=== PATIENT | male | born 1980 | race Caucasian/White ===

== ENCOUNTER 2020-07-24 03:38 | Emergency (ER) | payer OTHER ==
[2020-07-24] MEDS ORDERED: ALBUTEROL INHALER 60 PUFF/8 GM IH ONE (04:18)
[2020-07-24 04:45] LABS: Absolute Lymphocytes (CBC) 1.4 K/uL (0.7-4.9); Basophils % 0.8 % (0-1.3); Hematocrit 57.4 % (39.6-49.0); Lymphocytes % 7.9 % (15.3-44.8); MPV 6.6 fL (7.6-11.3); RBC Red Blood Cell Count 6.39 M/uL (4.33-5.43)
[2020-07-24 05:10] LABS: ALT/SGPT 17 U/L (12-78); AST/SGOT 15 U/L (15-37); Albumin 4.4 g/dL (3.4-5.0); Alkaline Phosphatase 86 U/L (45-117); BUN Blood Urea Nitrogen 4 mg/dL (7-18); Bicarbonate 30 mmol/L (21-32); Bilirubin Direct 0.2 mg/dL (0-0.2); Bilirubin Total 0.8 mg/dL (0.2-1.0); Glucose Level 113 mg/dL (74-106); Protein, Total 8.6 g/dL (6.4-8.2); Sodium Level 141 mmol/L (136-145)
[2020-07-24 05:11] LABS: NT PRO-BNP 480 pg/mL (<125); Troponin (Emerg Dept Use Only) < 0.02 ng/mL (0.0-0.045)
[2020-07-24] MEDS ORDERED: ACETAMINOPHEN 500 MG TAB ONE (05:30)
[2020-07-24] MEDS ORDERED: LORazepam 2 MG/ML VIAL ONE (05:30)
[2020-07-24] MEDS ORDERED: POTASSIUM 25 MEQ EFFERV TAB ONE (06:14)
--- NOTE | 2020-07-24 07:28 | RAD REPORT ---
EXAM DESCRIPTION: CT - Chest For Pe Angio - 07/24/2020 6:41 am CLINICAL HISTORY: SOB COMPARISON: CTANGIO CHEST FOR PE dated 02/07/2011; Chest Single View dated 07/24/2020 TECHNIQUE: Dynamically enhanced 3 mm thick images of the chest were obtained during administration o f approximately 150mL Isovue 370 IV contrast. Coronal and oblique MIP reconstruction images were gene rated and reviewed. Exam utilizes a protocol to evaluate the pulmonary arterial tree. All CT scans are performed using dose optimization technique as appropriate and may include automated exposure control or mA/KV adjustment according to patient size. FINDINGS: Exam has respiratory motion degradation that detail. No large central pulmonary emboli are present. Suspicion for peripheral pulmonary emboli is very low. The aorta as imaged shows no acute or suspicious finding. No pericardial thickening or effusion. No large mass or consolidation. The respiratory motion accentuates interstitial markings which could mask a mild edema or interstitial infiltrate. There is an 8 x 4 mm nodule in the superior segment lef t lower lobe abutting the fissure (image 61/132). No other nodules or mass. No pleural effusion or pl eural thickening. No mediastinal or hilar suspicious masses. No chest wall masses or abnormal axillary lymphadenopathy. IMPRESSION: No pulmonary emboli identified. The amount of respiratory motion does limit the examinat ion the pulmonary emboli are not suspected. No large mass or consolidation the motion limitations of the examination could also mask a mild inter stitial edema or infiltrate. An 8 x 4 mm pulmonary nodule in the superior segment left lower lobe is noted. Fleischner Society 201 7 follow-up recommendations for pulmonary nodule of this size would be repeat CT imaging in 6-12 wilda hs.
[2020-07-24 07:46] LABS: Barbiturates NEGATIVE (NEGATIVE); Benzodiazepines POSITIVE (NEGATIVE); Cocaine NEGATIVE (NEGATIVE); METHAMPHETAM NEGATIVE (NEGATIVE); Methadone NEGATIVE (NEGATIVE); Opiates NEGATIVE (NEGATIVE); Phencyclidine NEGATIVE (NEGATIVE); THC Cannibis NEGATIVE (NEGATIVE)
[2020-07-24 08:00] LABS: Urine Blood NEGATIVE (NEG); Urine Glucose NEGATIVE (NEG); Urine Protein NEGATIVE (NEG); Urine Specific Gravity 1.015 (1.005-1.030)
--- NOTE | 2020-07-24 08:05 | ER ---
Nurse's Notes [facility] Name: Saleem Erickson Age: 40 yrs Sex: Male : 1980 Arrival Date: 07/24/2020 Time: 03:39 Bed 8 Private MD: Diagnosis: Chest pain, unspecified;Cough;Pneumonia, unspecified organism Presentation: 07/24 03:49 Chief complaint: EMS states: toned out for left leg pain and chest pain with shortness ll2 of breath, hiv positive patient and requested to be brought in to er. Coronavirus screen: Client denies travel out of the [place] in the last 14 days. Client presents with at least one sign or symptom that may indicate coronavirus-19. Standard/surgical mask placed on the client. Provider contacted for isolation considerations. Ebola Screen: Patient negative for fever greater than or equal to 101.5 degrees Fahrenheit, and additional compatible Ebola Virus Disease symptoms. Initial Sepsis Screen: Does the patient meet any 2 criteria? No. Patient's initial sepsis screen is negative. Does the patient have a suspected source of infection? No. Patient's initial sepsis screen is negative. Risk Assessment: Do you want to hurt yourself or someone else? Patient reports no desire to harm self or others. Onset of symptoms was July 23, 2020. 03:49 Method Of Arrival: EMS: [facility] 03:49 Acuity: MARTA 3 ll2 Triage Assessment: 03:54 General: Appears in no apparent distress. Behavior is calm, cooperative, appropriate ll2 for age. General:. Pain: Complains of pain in left leg. EENT: No signs and/or symptoms were reported regarding the EENT system. Neuro: Level of Consciousness is awake, alert, obeys commands, Oriented to person, place, time, situation. Cardiovascular: Patient's skin is warm and dry. Respiratory: Airway is patent Respiratory effort is even, unlabored, Respiratory pattern is regular, symmetrical. GI: No signs and/or symptoms were reported involving the gastrointestinal system. : No signs and/or symptoms were reported regarding the genitourinary system. Derm: Skin is intact, is healthy with good turgor, Skin is dry, Skin is pink, warm \\T\\ dry. Musculoskeletal: Circulation, motion, and sensation intact. Range of motion: intact in all extremities. Historical: - Allergies: 04:03 VENLAFAXINE; ll2 04:03 Amoxicillin; ll2 04:03 Tizanidine; ll2 04:03 FLUCONAZOLE; ll2 - Home Meds: 03:57 hydrocodone-acetaminophen 7.5-325 mg Oral tab 1 tab every 4-6 hours [Active]; ll2 - PMHx: 04:05 HIV; Anxiety; ll2 - Immunization history:: Adult Immunizations. - Social history:: Smoking status: Patient reports the use of cigarette tobacco products, smokes one-half pack cigarettes per day. Screenin:40 Abuse screen: Denies threats or abuse. Nutritional screening: No deficits noted. ea Tuberculosis screening: No symptoms or risk factors identified. Fall Risk No IV (0 pts). Assessment: 03:55 Reassessment: SEE TRIAGE ASSESSMENT. ll2 04:41 Reassessment: Patient and/or family updated on plan of care and expected duration. Pain ll2 level reassessed. Patient is alert, oriented x 3, equal unlabored respirations, skin warm/dry/pink. Pain: Pain does not radiate. Pain began gradually. 05:06 Reassessment: PT REQUESTING SOMETHING FOR PANIC ERD NOTIFIED, VERBAL ORDER OBTAINED. ll2 05:14 Reassessment: platelet of 921 ED provider informed. rr5 06:14 Reassessment: No changes from previously documented assessment. Patient and/or family ll2 updated on plan of care and expected duration. Pain level reassessed. Patient is alert, oriented x 3, equal unlabored respirations, skin warm/dry/pink. 07:46 Reassessment: pt call light answered, pt states "i am having anxiety and my leg hurts", tw2 provider notified. pt NAD upon entry into exam room. 08:07 Reassessment: provider at bedside at this time. tw2 08:08 Reassessment: Patient appears in no apparent distress at this time. Patient and/or tw2 family updated on plan of care and expected duration. Pain level reassessed. Patient is alert, oriented x 3, equal unlabored respirations, skin warm/dry/pink. 08:17 Reassessment: Patient appears in no apparent distress at this time. No changes from tw2 previously documented assessment. Patient and/or family updated on plan of care and expected duration. Pain level reassessed. Patient is alert, oriented x 3, equal unlabored respirations, skin warm/dry/pink. Vital Signs: 03:49 BP 143 / 98; Pulse 87; Resp 18; Temp 97.6; Pulse Ox 93% on R/A; ll2 04:00 BP 110 / 77; Pulse 95; Resp 18; Temp 97.6; Pulse Ox 93% ; ll2 05:00 BP 110 / 77; Pulse 96; Resp 18; Pulse Ox 94% on R/A; ll2 07:00 BP 122 / 76; Pulse 82; Resp 17; Pulse Ox 95% on R/A; tw2 08:08 BP 130 / 76; Pulse 96; Resp 17; Pulse Ox 95% on R/A; tw2 ED Course: 03:39 Patient arrived in ED. ea 03:40 Patient has correct armband on for positive identification. Placed in gown. Bed in low ea position. Call light in reach. satellite project site monitor on. Pulse ox on. NIBP on. 03:41 Patient placed in an exam room, on a stretcher, on hall monitor, on pulse oximetry. ea 03:43 Dong Montanez MD is Attending Physician. mh7 03:45 Jyoti Oden RN is Primary Nurse. ea 03:49 Joanna Hoang RN is Primary Nurse. ll2 03:54 Triage completed. ll2 04:20 Initial lab(s) drawn, by ia, sent to lab. Inserted saline lock: 20 gauge in right ll2 antecubital area, using aseptic technique. Blood collected. 05:11 X-ray completed. Portable x-ray completed in exam room. Patient tolerated procedure mh1 well. 05:11 Chest Single View XRAY In Process Unspecified. EDMS 05:46 No provider procedures requiring assistance completed. Patient maintains SpO2 ll2 saturation greater than 95% on room air. 06:41 CT Chest For PE Angio In Process Unspecified. EDMS 07:08 Report given to ADELA Ritchie. ll2 07:18 Primary Nurse role handed off by Joanna Hoang, ADELA tw2 07:18 Christin Wright RN is Primary Nurse. tw2 07:59 Attending Physician role handed off by Dong Montanez MD rn 07:59 Man Alvarez MD is Attending Physician. rn 08:22 IV discontinued, intact, bleeding controlled, No redness/swelling at site. Pressure tw2 dressing applied. Administered Medications: 04:17 Drug: Albuterol HFA Inhaler 2 puffs Route: Inhalation; rr5 05:20 Follow up: Response: No adverse reaction ll2 05:26 Drug: Ativan 1 mg Route: IVP; Site: right antecubital; ll2 06:14 Follow up: Response: No adverse reaction; Anxiety decreased ll2 05:28 Drug: Tylenol 500 mg Route: PO; ll2 06:13 Follow up: Response: No adverse reaction ll2 06:00 Drug: Potassium Effervescent Tablet 50 mEq Route: PO; ll2 06:14 Follow up: Response: No adverse reaction ll2 08:09 Drug: LevaQUIN 750 mg Route: PO; tw2 08:21 Follow up: Response: No adverse reaction tw2 Outcome: 08:04 Discharge ordered by . rn 08:21 Discharged to home via wheelchair, with significant other. tw2 08:21 Condition: stable 08:21 Discharge instructions given to patient, significant other, Instructed on discharge instructions, follow up and referral plans. medication usage, Demonstrated understanding of instructions, follow-up care, medications, Prescriptions given X 1. 08:22 Patient left the ED. tw2 Signatures: Dispatcher [employer] EDMS Fatoumata Tavera mh1 Man Alvarez MD MD rn Wise, Tara, RN RN tw2 Jyoti Oden RN RN ea Roque, Raymond, RN RN rr5 Joanna Hoang RN RN 2 Dong Montanez MD MD 7 Corrections: (The following items were deleted from the chart) 03:40 03:40 Social history: Smoking status: xiomara solano
--- NOTE | 2020-07-24 08:05 | EDPHYS ---
Physician Documentation [facility] Name: Saleem Erickson Age: 40 yrs Sex: Male : 1980 Arrival Date: 07/24/2020 Time: 03:39 Bed 8 Private MD: ED Physician Man Alvarez HPI: 07/24 04:32 This 40 yrs old Male presents to ER via EMS with complaints of Chest Pain > mh7 29 y/o, Leg Pain. 05:13 The patient presents to the emergency department with anxiety, over unknown mh7 circumstances. Onset: The symptoms/episode began/occurred 1 week(s) ago. Past psychiatric history: Prior diagnosis: no previous psychiatric diagnosis known, Psychiatric medications include: none, Primary psychiatric physician: the patient does not have a primary psychiatric physician, the patient has not had a prior suicide gesture, the patient does not have a previous inpatient psychiatric history, the patient's last psychiatric treatment was none. Associated signs and symptoms: Pertinent positives; anxiety, chest pain, shortness of breath, cough, Pertinent negatives: abdominal pain, chills, delusions, depression, fever, hallucinations, headache, homicidal ideation, nausea, night sweats, palpitations, paranoia, substance abuse, suicide ideation, tremor, vomiting. Severity of symptoms: At their worst the symptoms were moderate 2 day(s) ago, in the emergency department the symptoms are unchanged. Patient reports feeling anxious and having panic attack. He has associated chest pain and SOB. He has had a productive cough with green sputum.. Historical: - Allergies: 04:03 VENLAFAXINE; ll2 04:03 Amoxicillin; ll2 04:03 Tizanidine; ll2 04:03 FLUCONAZOLE; ll2 - Home Meds: 03:57 hydrocodone-acetaminophen 7.5-325 mg Oral tab 1 tab every 4-6 hours [Active]; ll2 - PMHx: 04:05 HIV; Anxiety; ll2 - Immunization history:: Adult Immunizations. - Social history:: Smoking status: Patient reports the use of cigarette tobacco products, smokes one-half pack cigarettes per day. ROS: 05:13 Constitutional: Negative for fever, chills, and weight loss, Eyes: Negative for injury, mh7 pain, redness, and discharge, ENT: Negative for injury, pain, and discharge, Neck: Negative for injury, pain, and swelling, Abdomen/GI: Negative for abdominal pain, nausea, vomiting, diarrhea, and constipation, Back: Negative for injury and pain, : Negative for injury, bleeding, discharge, and swelling, Skin: Negative for injury, rash, and discoloration, Neuro: Negative for headache, weakness, numbness, tingling, and seizure, Allergy/Immunology: Negative for hives, rash, and allergies, Endocrine: Negative for neck swelling, polydipsia, polyuria, polyphagia, and marked weight changes, Hematologic/Lymphatic: Negative for swollen nodes, abnormal bleeding, and unusual bruising. Exam: 05:13 Head/Face: Normocephalic, atraumatic. Eyes: Pupils equal round and reactive to light, mh7 extra-ocular motions intact. Lids and lashes normal. Conjunctiva and sclera are non-icteric and not injected. Cornea within normal limits. Periorbital areas with no swelling, redness, or edema. Neck: Trachea midline, no thyromegaly or masses palpated, and no cervical lymphadenopathy. Supple, full range of motion without nuchal rigidity, or vertebral point tenderness. No Meningismus. Chest/axilla: Normal chest wall appearance and motion. Nontender with no deformity. No lesions are appreciated. Cardiovascular: Regular rate and rhythm with a normal S1 and S2. No gallops, murmurs, or rubs. Normal PMI, no JVD. No pulse deficits. Respiratory: Lungs have equal breath sounds bilaterally, clear to auscultation and percussion. No rales, rhonchi or wheezes noted. No increased work of breathing, no retractions or nasal flaring. Abdomen/GI: Soft, non-tender, with normal bowel sounds. No distension or tympany. No guarding or rebound. No evidence of tenderness throughout. Back: No spinal tenderness. No costovertebral tenderness. Full range of motion. Skin: Warm, dry with normal turgor. Normal color with no rashes, no lesions, and no evidence of cellulitis. MS/ Extremity: Pulses equal, no cyanosis. Neurovascular intact. Full, normal range of motion. 05:13 Neuro: Awake and alert, GCS 15, oriented to person, place, time, and situation. Cranial nerves II-XII grossly intact. Motor strength 5/5 in all extremities. Sensory grossly intact. Cerebellar exam normal. Normal gait. 05:13 Constitutional: The patient appears in no acute distress, alert, awake, comfortable, anxious. 05:13 Psych: Behavior/mood is cooperative, anxious, Affect is animated, Oriented to person, place, time, Patient has no thoughts/intents to harm self or others. Judgement / Insight is normal. Memory is normal. Delusions/hallucinations are not present. Vital Signs: 03:49 BP 143 / 98; Pulse 87; Resp 18; Temp 97.6; Pulse Ox 93% on R/A; ll2 04:00 BP 110 / 77; Pulse 95; Resp 18; Temp 97.6; Pulse Ox 93% ; ll2 05:00 BP 110 / 77; Pulse 96; Resp 18; Pulse Ox 94% on R/A; ll2 07:00 BP 122 / 76; Pulse 82; Resp 17; Pulse Ox 95% on R/A; tw2 08:08 BP 130 / 76; Pulse 96; Resp 17; Pulse Ox 95% on R/A; tw2 MDM: 07:23 Transition of care: After a detail discussion of the patient's case, care is 7 transferred to Man Alvarez MD. 07:59 Patient medically screened. rn 08:01 Differential diagnosis: PE, bronchitis, pneumonia, pneumothorax. Data reviewed: vital rn signs, nurses notes, lab test result(s), radiologic studies, CT scan, and as a result, I will discharge patient. Counseling: I had a detailed discussion with the patient and/or guardian regarding: the historical points, exam findings, and any diagnostic results supporting the discharge/admit diagnosis, lab results, radiology results, the need for outpatient follow up, to return to the emergency department if symptoms worsen or persist or if there are any questions or concerns that arise at home. Special discussion: I discussed with the patient/guardian in detail that at this point there is no indication for admission to the hospital. It is understood, however, that if the symptoms persist or worsen the patient needs to return immediately for re-evaluation. ED course: Signed out to me by Dr. Montanez, plan was to get CT PE protocol and dc if normal. . 07/24 04:00 Order name: CBC with Diff; Complete Time: 05:44 [facility] 07/24 04:00 Order name: Basic Metabolic Panel; Complete Time: 05:44 [facility] 07/24 04:00 Order name: LFT's; Complete Time: 05:44 [facility] 07/24 04:00 Order name: UDS; Complete Time: 08:00 [facility] 07/24 04:01 Order name: Troponin (emerg Dept Use Only); Complete Time: 05:44 [facility] 07/24 04:01 Order name: PROBNP; Complete Time: 05:44 [facility] 07/24 04:00 Order name: Chest Single View XRAY [facility] 07/24 04:02 Order name: COVID-19 [facility] 07/24 05:48 Order name: CT Chest For PE Angio; Complete Time: 08:00 [facility] 07/24 07:16 Order name: Urine Dipstick--Ancillary (enter results) 07/24 04:01 Order name: EKG - Nurse/Tech; Complete Time: 05:29 [facility] Administered Medications: 04:17 Drug: Albuterol HFA Inhaler 2 puffs Route: Inhalation; rr5 05:20 Follow up: Response: No adverse reaction ll2 05:26 Drug: Ativan 1 mg Route: IVP; Site: right antecubital; ll2 06:14 Follow up: Response: No adverse reaction; Anxiety decreased ll2 05:28 Drug: Tylenol 500 mg Route: PO; ll2 06:13 Follow up: Response: No adverse reaction ll2 06:00 Drug: Potassium Effervescent Tablet 50 mEq Route: PO; ll2 06:14 Follow up: Response: No adverse reaction ll2 08:09 Drug: LevaQUIN 750 mg Route: PO; tw2 08:21 Follow up: Response: No adverse reaction tw2 Disposition: 07/24/20 08:04 Discharged to Home. Impression: Chest pain, unspecified, Cough, Pneumonia, unspecified organism. - Condition is Stable. - Discharge Instructions: Acute Bronchitis, Adult, Nonspecific Chest Pain. - Prescriptions for Levaquin 750 mg Oral Tablet - take 1 tablet by ORAL route once daily for 10 days; 10 tablet. - Medication Reconciliation Form, Thank You Letter, Antibiotic Education, Prescription Opioid Use form. - Follow up: Private Physician; When: As needed; Reason: Recheck today's complaints, Re-evaluation by your physician. - Problem is new. - Symptoms have improved. Signatures: Dispatcher [employer] EDMS Man Alvarez MD MD rn Wise, Tara RN RN tw2 Jyoti Oden, RN RN Trey Rivera, RN RN rr5 Joanna Hoang, RN RN ll2 Dong Montanez MD MD mh7 Corrections: (The following items were deleted from the chart) 03:40 03:40 Social history: Smoking status: xiomara solano 08:05 08:04 07/24/2020 08:04 Discharged to Home. Impression: Chest pain, unspecified; Cough. rn Condition is Stable. Forms are Medication Reconciliation Form, Thank You Letter, Antibiotic Education, Prescription Opioid Use. Follow up: Private Physician; When: As needed; Reason: Recheck today's complaints, Re-evaluation by your physician. Problem is new. Symptoms have improved. rn 08:22 08:05 07/24/2020 08:04 Discharged to Home. Impression: Chest pain, unspecified; Cough; tw2 Pneumonia, unspecified organism. Condition is Stable. Discharge Instructions: Acute Bronchitis, Adult, Nonspecific Chest Pain. Prescriptions for Zithromax Z-Robin 250 mg Oral Tablet - take 1 tablet by ORAL route as directed for 5 days Day 1 - take two (2) tablets one time. Day 2, 3, 4 , 5 take one (1) tablet once daily.; 6 tablet. and Forms are Medication Reconciliation Form, Thank You Letter, Antibiotic Education, Prescription Opioid Use. Follow up: Private Physician; When: As needed; Reason: Recheck today's complaints, Re-evaluation by your physician. Problem is new. Symptoms have improved. rn
[2020-07-24] MEDS ORDERED: levoFLOXacin 750 MG TAB ONE (08:25)
[2020-07-24 11:17] VITALS: TEMP 97.6
[2020-07-24 11:22] VITALS: O2SAT 95
[2020-07-24 11:23] VITALS: BP 130/76
--- NOTE | 2020-07-25 10:27 | RAD REPORT ---
EXAM DESCRIPTION: RAD - Chest Single View - 07/24/2020 5:10 am CLINICAL HISTORY: COUGH COMPARISON: None. FINDINGS: Single frontal radiograph view of the chest. Cardiomediastinal silhouette: Normal size and contour. Lungs: Mild patchy bibasilar opacities. No pneumothorax or large effusion. Bones: No acute osseous abnormality. Leads overlie the chest. Upper abdomen: No abnormality identified. IMPRESSION: 1. Mild patchy bibasilar opacities. These findings could be seen with developing pneumon ic process. Electronically signed by: Enzo Chairez 07/24/2020 6:44 AM TELLER SUPERVISOR Due to temporary technical issues with the PACS/Fluency reporting system, reports are being signed by the in house radiologist without review as a courtesy to ensure prompt reporting. The interpreting r adiologist is fully responsible for the content of the report.
== END 2020-07-24 08:22 | disposition home or self-care (01) ==
LOC: ER 03:38
DX: J18.9 Pneumonia, unspecified organism (principal); F17.210 Nicotine dependence, cigarettes, uncomplicated; F41.9 Anxiety disorder, unspecified
CPT/HCPCS: 36415; 71045; 71275; 80048; 80076; 80307; 81003; 83880; 84484; 85025; 93005; 96374; 99285; Q9967; U0003

== ENCOUNTER 2020-07-25 06:58 | Inpatient (IN) | payer OTHER ==
--- OUTSIDE RECORDS SUMMARY | 2020-07-25 07:00 | XMS REPORT | Summary of Care ---
:1980 Author Organization [facility] Address [address] [place] [address] Care Team Providers Name Role Phone Manuel Izquierdo MD Primary Care Provider Reason for Visit Reason Comments Referral/consult Encounter Details Date Type Department Care Team Description 04/22/2020 Telephone [facility] Infectious Iker Izquierdo MD Referral/consult Diseases- [address] [place], [place] [id number] [place] [address] Allergies Active Allergy Reactions Severity Noted Date Comments Aspirin 10/20/2005 Mupirocin Rash 06/09/2014 Propoxyphene N-Acetaminophen 10/20/2005 Gabapentin Hives 05/02/2019 Sulfa (Sulfonamide Antibiotics) Rash 4 Reaction to Bactrim DS Tramadol Hives 06/09/2014 documented as of this encounter (statuses as of 05/05/2020) Medications Medication Sig Dispensed Refills Start Date End Date Status HYDROcodone-acetamin Take 1 tablet by 90 tablet 0 09/02/2019 Active ophen (NORCO) 10-325 mouth every 6 (six) mg hours as needed for tabletIndications: Pain (scale 4-6). Bronchitis NARCAN 4 ADMINISTER A SINGLE 0 11/04/2019 Active mg/actuation [place] SPRAY INTRANASALLY INTO ONE NOSTRIL. CALL 911. MAY REPEAT X 1. tiZANidine 2 mg TAKE 1 CAPSULE BY 0 10/08/2019 Active capsule MOUTH EVERY 6 HOURS DIRECTED FOR 30 DAYS tiZANidine 2 mg TAKE 1 TABLET BY 0 12/02/2019 Active tablet MOUTH EVERY 6 HOURS DIRECTED FOR 30 DAYS fluconazole 100 mg TAKE 1 TABLET BY 7 tablet 3 12/18/2019 Active tabletIndications: MOUTH ONCE DAILY FOR Oral candidiasis 7 DAYS uuqdnjqel-fxaffwua-u Take 1 tablet by 30 tablet 6 04/22/2020 Active enofov ala 50-200-25 mouth daily. mg tabletIndications: Need for vaccination documented as of this encounter (statuses as of 05/05/2020) Active Problems Problem Noted Date S/P IVC filter 03/27/2017 Hip pain, chronic, left 06/12/2014 Human immunodeficiency virus (HIV) disease 08/04/2012 Hepatitis B virus infection 08/04/2012 documented as of this encounter (statuses as of 05/05/2020) Resolved Problems Problem Noted Date Resolved Date Rash 11/25/2013 03/05/2016 Oral candidiasis 08/11/2012 03/05/2016 MRSA infection 08/04/2012 03/05/2016 Hepatitis B, chronic 08/04/2012 08/04/2012 documented as of this encounter (statuses as of 05/05/2020) Immunizations Name Administration Dates Next Due Influenza Virus Vaccine 09/08/2012 Influenza Virus Vaccine (3+ yrs) 07/22/2013 Influenza Virus Vaccine Quad .5 mL IM 6+ MO 09/02/2019 Influenza Virus Vaccine Quad ID 18-64 YRS 08/03/2015 Influenza Virus Vaccine Quad IM Multi-dose 6+ MO 09/15/2014 Pneumococcal 13 Conjugate, PCV13 (Prevnar 13) 09/15/2014 Pneumococcal Polysaccharide, PPSV23 (PNEUMOVAX) 11/24/2012 TDAP (ADACEL) VACCINE 09/08/2012 documented as of this encounter Social History Tobacco Use Types Packs/Day Years Used Date Current Every Day Smoker Cigarettes 0.25 1 Smokeless Tobacco: Never Used Comments: 1 ppd x 15 years Alcohol Use Drinks/Week oz/Week Comments No sober since age 18 Sex Assigned at Date Recorded Not on file COVID-19 Exposure Response Date Recorded In the last month, have you been in contact with No / Unsure 04/05/2020 4:15 PM CDT someone who was confirmed or suspected to have Coronavirus / COVID-19? documented as of this encounter Last Filed Vital Signs Not on filedocumented in this encounter Miscellaneous Notes Telephone Encounter - Ivette Lane - 05/04/2020 8:18 AM CDTPlease review and close encounter. Thank you. elephone Encounter - Lesli Peterson RN - 04/28/2020 1:12 PM CDTCalled and spoke with patient. Advised him that we would need his most recent medical records from his Pain doctor faxed to us. Patient asked me to send the fax number to his email (he is driving right now). Emailed patient our fax number. Awaiting medical records... elephone Encounter - Rex Escamilla PA - 04/26/2020 1:37 PM CDTHe is seeing a pain doctor locally and would need to have those records faxed to us and scanned in before placing a referral elephone Encounter - Lesli Peterson RN - 04/26/2020 8:19 AM CDTJeff, Is it okay to place an updated referral to Pain Management? Last time one was done back in 12/2017, it was for: HIV postive, s/p hip replacement with chronic pain Thank you elephone Encounter - Ivette Lane - 04/22/2020 2:37 PM CDTavonus Vincent Erickson is a 40 year old male is requesting an updated external pain mgmt referral sent to [facility] Please fax to [phone] # [phone] Thank you documented in this encounter Plan of Treatment Date Type Specialty Care Team Description 07/06/2020 Office Visit Infectious Disease Anu Izquierdo MD [address] [place] [address] 555 [phone] Health Maintenance Due Date Last Done Comments PNEUMOCOCCAL 0-64 YEARS COMBINED 11/24/2017 09/15/2014, 08/2012 SERIES (3 of 3 - PPSV23) INFLUENZA VACCINE (#1) 2020 09/02/2019, 09/15/2014, 07/22/2013, Additional history exists Depression Screening 09/02/2020 09/02/2019 DTaP,Tdap,and Td Vaccines (2 - Td) 09/08/2022 09/08/2012 documented as of this encounter Results Not on filedocumented in this encounter Additional Health Concerns Infection Onset Date Last Indicated Resolved Time Contact- MRSA 11/29/2012 11/29/2012 documented as of this encounter Insurance Payer Benefit Plan / Subscriber ID Effective Dates Phone Addre ss Type Group [employer] MEDICAID OF [id number] 2018-Present [phone] [address] [place] [id number] [place] [phone] documented as of this encounter Advance Directives Type Date Recorded Patient Cryptographic Center Specialist Explanati on Advance Directives and Living Will Power of Media Center Specialist
--- OUTSIDE RECORDS SUMMARY | 2020-07-25 07:00 | XMS REPORT | Continuity of Care Document ---
:1980 Author Organization [facility] t Address [address] [place] [address] Care Team Providers Name Role Phone Ana Maria Espinosa Attending Clinician Manuel Izquierdo MD Attending Clinician Andi CORDOVA Attending Clinician Problems This patient has no known problems. Allergies, Adverse Reactions, Alerts This patient has no known allergies or adverse reactions. Medications This patient has no known medications. Procedures This patient has no known procedures. Encounters Start End Encounter Admission Attending Care Care Encounter Source Date/Time Date/Time Type Type Clinicians Facility Department ID 2020-07-12 2020-07-12 Emergency Barron [facility] [id number] 21:44:00 22:48:00 Angie Rodgers [place] [id number] [place] [id number] [place] [id number] 2020-06-13 2020-06-13 [address] [id number] 00:00:00 00:00:00 [facility] [id number] [facility] [id number] 2020-04-05 2020-04-05 [id number] 15:58:41 16:58:52 Visit [facility] [id number] [facility] [id number] Results This patient has no known results.
--- OUTSIDE RECORDS SUMMARY | 2020-07-25 07:01 | XMS REPORT | Summary of Care ---
:1980 Author Organization [facility] Address [address] [place] [address] Care Team Providers Name Role Phone Manuel Izquierdo MD Primary Care Provider Reason for Referral Radiology Services (STAT) Status Reason Specialty Diagnoses / Referred By Referred To Procedures Contact Contact New Request Diagnostic Diagnoses Cough Bria, K Radiology Procedures XR CHEST 1 VW Meme, PAC [address] [place] [address] Reason for Visit Reason Comments Cough Auth/Cert Status Reason Specialty Diagnoses / Referred By Referred To Procedures Contact Contact Emergency Medicine Adc Em ergency Dept [address] [place] [address] Fax: Encounter Details Date Type Department Care Team Description 05/23/2020 Emergency ADC-Emergency Bria K Meme, Bronchitis (Primary Dx); Department PAC Cough; [address] [place] [address] [facility] HIV infection, unspecified symptom statu s [address] [address] [place] [address] Allergies Active Allergy Reactions Severity Noted Date Comments Aspirin 10/20/2005 Mupirocin Rash 06/09/2014 Propoxyphene N-Acetaminophen 10/20/2005 Gabapentin Hives 05/02/2019 Sulfa (Sulfonamide Antibiotics) Rash 4 Reaction to Bactrim DS Tramadol Hives 06/09/2014 documented as of this encounter (statuses as of 05/23/2020) Medications Medication Sig Dispensed Refills Start Date End Date Status HYDROcodone-acetami Take 1 tablet by 90 tablet 0 09/02/2019 Active nophen (NORCO) mouth every 6 (six) 10-325 mg hours as needed for tabletIndications: Pain (scale 4-6). Bronchitis NARCAN 4 ADMINISTER A SINGLE 0 11/04/2019 Active mg/actuation [employer] [place] SPRAY INTRANASALLY INTO ONE NOSTRIL. CALL 911. [...] ONCE DAILY FOR Oral candidiasis 7 DAYS bictegrav-emtricit- Take 1 tablet by 30 tablet 6 04/22/2020 Active tenofov ala mouth daily. 50-200-25 mg tabletIndications: Need for vaccination doxycycline hyclate Take 1 capsule by 20 capsule 0 05/23/2020 Active 100 mg mouth 2 (two) times capsuleIndications: daily. Bronchitis predniSONE 20 mg 1 PO BID x 4 days 8 tablet 0 05/23/2020 Active tabletIndications: Bronchitis albuterol 90 Inhale 2 Puffs every 8.5 g 0 05/23/2020 Active mcg/actuation 4 (four) hours as inhalerIndications: needed for Wheezing Bronchitis or Shortness of Breath. documented as of this encounter (statuses as of 05/23/2020) Active Problems Problem Noted Date S/P IVC filter 03/27/2017 Hip pain, chronic, left 06/12/2014 Human immunodeficiency virus (HIV) disease 08/04/2012 Hepatitis B virus infection 08/04/2012 documented as of this encounter (statuses as of 05/23/2020) Resolved Problems Problem Noted Date Resolved Date Rash 11/25/2013 03/05/2016 Oral candidiasis 08/11/2012 03/05/2016 MRSA infection 08/04/2012 03/05/2016 Hepatitis B, chronic 08/04/2012 08/04/2012 documented as of this encounter (statuses as of 05/23/2020) Immunizations Name Administration Dates Next Due Influenza [...] been in contact with No / Unsure 05/23/2020 4:01 PM CDT someone who was confirmed or suspected to have Coronavirus / COVID-19? documented as of this encounter Last Filed Vital Signs Vital Sign Reading Time Taken Comments Blood Pressure 128/78 05/23/2020 6:38 PM CDT Pulse 82 05/23/2020 6:38 PM CDT Temperature 37.1 C (98.7 F) 05/23/2020 4:03 PM CDT Respiratory Rate 14 05/23/2020 6:38 PM CDT Oxygen Saturation 97% 05/23/2020 6:38 PM CDT Inhaled Oxygen Concentration - - Weight 77.1 kg (170 lb) 05/23/2020 4:03 PM CDT Height 172.7 cm (5' 8") 05/23/2020 4:03 PM CDT Body Mass Index 25.85 05/23/2020 4:03 PM CDT documented in this encounter Discharge Instructions AttachmentsThe following attachments cannot be sent through Care Everywhere. Bronchitis with Wheezing (Adult) (Somali)Bronchitis, Antibiotic Treatment (Adult) (Somali)documented in this encounter ED Notes Yun Cheng RN - 05/23/2020 4:02 PM CDTCough since yesterday. Patient states he coughed all last night and his ribs are hurting. He smells strongly of cigarette smoke. documented in this encounter Miscellaneous Notes ED Nurse Note - Ghazala García RN - 05/23/2020 6:37 PM CDTPt given printed and verbal discharge instructions regarding bronchitis and cough, encouraged hydration. Prescriptions provided. Discussed ibuprofen and to take with food to avoid GI distress. Discussed antibiotic therapy and to take until all completed unless adverse reaction occurs - if occurs, discontinue medication and follow up with pcp/seek medical attention. Pt verbalized understanding of instructions, pt awake alert oriented, resp reg unlabored, skin w/d, color appropriate for race, moves all ext well, pt encouraged to follow up with PCP. Advised to seek medical attention for new/prolonged/worsening of symptoms. Symptoms addressed. No adverse reaction to meds given in ER noted upon discharge. Pt leaving amb with steady gait, in no apparent distress. D Nurse Note - Ghazala García RN - 05/23/2020 4:09 PM CDTWalk test performed, saturation levels remained above 96%. Patient coughed up green mucous during walk test. documented in this encounter Plan of Treatment Date Type Specialty Care Team Description 07/06/2020 Office Visit Infectious Disease Anu Izquierdo MD [address] [address] 555 Name Type Priority Associated Diagnoses Order S chedule CORONAVIRUS COVID-19 LAB Routine Cough ONCE fo r 1 Occurrences TESTING starting 2019 until 05/23/2020 Health Maintenance Due Date Last Done Comments PNEUMOCOCCAL 0-64 YEARS COMBINED 11/24/2017 09/15/2014, 08/2012 SERIES (3 of 3 - PPSV23) INFLUENZA VACCINE (#1) 2020 09/02/2019, 09/15/2014, 07/22/2013, Additional history exists Depression Screening 09/02/2020 09/02/2019 DTaP,Tdap,and Td Vaccines (2 - Td) 09/08/2022 09/08/2012 documented as of this encounter Procedures Procedure Name Priority Date/Time Associated Diagnosis Comme nts XR CHEST 1 VW STAT 05/23/2020 5:25 PM Cough Results for this CDT procedure are i n the results section. CONSENT/REFUSAL FOR Routine 05/23/2020 3:44 PM DIAGNOSIS AND CDT TREATMENT documented in this encounter Results XR CHEST 1 VW (05/23/2020 5:25 PM CDT) Specimen Impressions Performed At PACS/VR/DOSE No acute cardiopulmonary abnormality. Preliminary Report Dictated by Resident: Lb Montero MD., have reviewe d this study and agree with the above report. Narrative Performed At EXAM: XR CHEST 1 VW PACS/VR/DOSE HISTORY: cough COMPARISON: None Technique: PA view radiograph of the c hest FINDINGS: No focal consolidation, pleural effusion or pneumothorax is seen. The cardiac silhouette is normal in size . No acute bony abnormality. Procedure Note [facility], Radiant Results Inft User - 2019 6:32 PM CDT EXAM: XR CHEST 1 VW HISTORY: cough COMPARISON: None Technique: PA view radiograph of the ch est FINDINGS: No focal consolidation, pleural effusion or pneumothorax is seen. The cardiac silhouette is normal in size . No acute bony abnormality. IMPRESSION No acute cardiopulmonary abnormality. Preliminary Report Dictated by Resident: Lb Montero MD., have reviewed this study and agree with the above report. Performing Organization Address City/State/Zipcode Phone Number PACS/VR/DOSE documented in this encounter Visit Diagnoses Diagnosis Bronchitis - Primary Bronchitis, not specified as acute or ch ronic Cough HIV infection, unspecified symptom statu s documented in this encounter Additional Health Concerns Infection Onset Date Last Indicated Resolved Time Contact- MRSA 11/29/2012 11/29/2012 COVID-19 Rule Out 05/23/2020 05/23/2020 documented as of this encounter Insurance Payer Benefit Plan Subscriber ID Effective Phone Address Typ e / Group Dates HUMANA - HUMANA [id number] 2020-Pre Medica re Adv MANAGED MEDICARE sent FFS MEDICARE [facility] MEDICAID OF [id number] 2018-Pres [phone] Medi caid [place] ent [phone] [place] [address] [phone] (Work) documented as of this encounter Advance Directives Type Date Recorded 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
--- OUTSIDE RECORDS SUMMARY | 2020-07-25 07:01 | XMS REPORT | Summary of Care ---
:1980 Author Organization [facility] Address [address] [place] [address] Care Team Providers Name Role Phone Manuel Izquierdo MD Primary Care Provider Reason for Visit Reason Comments Refill Request Encounter Details Date Type Department Care Team Description 05/23/2020 Refill [facility] Infectious Iker Izquierdo MD Refill Request Diseases- [address] [address] [address] [place] [address] Allergies Active Allergy Reactions Severity Noted Date Comments Aspirin 10/20/2005 Mupirocin Rash 06/09/2014 Propoxyphene N-Acetaminophen 10/20/2005 Gabapentin Hives 05/02/2019 Sulfa (Sulfonamide Antibiotics) Rash 4 Reaction to Bactrim DS Tramadol Hives 06/09/2014 documented as of this encounter (statuses as of 05/25/2020) Medications Medication Sig Dispensed Refills Start Date End Date Status HYDROcodone-aceta Take 1 tablet by 90 tablet 0 09/02/2019 Active minophen (NORCO) mouth every 6 10-325 mg (six) hours as tabletIndications needed for Pain : Bronchitis (scale 4-6). NARCAN 4 ADMINISTER A 0 11/04/2019 Active mg/actuation [place] SINGLE SPRAY INTRANASALLY INTO ONE NOSTRIL. CALL 911. MAY REPEAT X 1. tiZANidine 2 mg TAKE 1 CAPSULE BY 0 10/08/2019 Active capsule MOUTH EVERY 6 HOURS DIRECTED FOR 30 DAYS tiZANidine 2 mg TAKE 1 TABLET BY 0 12/02/2019 Active tablet MOUTH EVERY 6 HOURS DIRECTED FOR 30 DAYS bictegrav-emtrici Take 1 tablet by 30 tablet 6 04/22/2020 Active t-tenofov ala mouth daily. 50-200-25 mg tabletIndications : Need for vaccination FLUCONAZOLE 100 Take 1 tablet by 7 tablet 0 05/25/2020 Active mg mouth once daily tabletIndications for 7 days : Oral candidiasis doxycycline Take 1 capsule by 20 capsule 0 05/23/2020 Active hyclate 100 mg mouth 2 (two) capsuleIndication times daily. s: Bronchitis predniSONE 20 mg 1 PO BID x 4 days 8 tablet 0 05/23/2020 Active tabletIndications : Bronchitis albuterol 90 Inhale 2 Puffs 8.5 g 0 05/23/2020 A ctive mcg/actuation every 4 (four) inhalerIndication hours as needed s: Bronchitis for Wheezing or Shortness of Breath. fluconazole 100 TAKE 1 TABLET BY 7 tablet 3 12/18/2019 Discontinued mg MOUTH ONCE DAILY 0 tabletIndications FOR 7 DAYS : Oral candidiasis documented as of this encounter (statuses as of 05/25/2020) Active Problems Problem Noted Date S/P IVC filter 03/27/2017 Hip pain, chronic, left 06/12/2014 Human immunodeficiency virus (HIV) disease 08/04/2012 Hepatitis B virus infection 08/04/2012 documented as of this encounter (statuses as of 05/25/2020) Resolved Problems Problem Noted Date Resolved Date Rash 11/25/2013 03/05/2016 Oral candidiasis 08/11/2012 03/05/2016 MRSA infection 08/04/2012 03/05/2016 Hepatitis B, chronic 08/04/2012 08/04/2012 documented as of this encounter (statuses as of 05/25/2020) Immunizations Name Administration Dates Next Due Influenza [...] this encounter Miscellaneous Notes Telephone Encounter - Melva Moser RN - 05/25/2020 1:58 PM CDT Received refill request for: Requested Prescriptions Signed Prescriptions Disp Refills FLUCONAZOLE 100 mg tablet 7 tablet 0 Sig: Take 1 tablet by mouth once daily for 7 days Authorizing Provider: KATIE CERVANTES Ordering User: MELVA MOSER Last filled: 12/18/2019 Follow up scheduled for : 07/06/2020 Last office visit: 04/05/2020 Refilled approval sent to: Pharmacy: [facility] [address] [place] [id number] Refilled per Guidelines documented in this encounter Plan of Treatment Date Type Specialty Care Team Description 07/06/2020 Office Visit Infectious Disease Anu Izquierdo MD [address] [address] Health Maintenance Due Date Last Done Comments PNEUMOCOCCAL 0-64 YEARS COMBINED 11/24/2017 09/15/2014, 08/2012 SERIES (3 of 3 - PPSV23) INFLUENZA VACCINE (#1) 2020 09/02/2019, 09/15/2014, 07/22/2013, Additional history exists Depression Screening 09/02/2020 09/02/2019 DTaP,Tdap,and Td Vaccines (2 - Td) 09/08/2022 09/08/2012 documented as of this encounter Results Not on filedocumented in this encounter Visit Diagnoses Diagnosis Oral candidiasis Candidiasis of mouth documented in this encounter Additional Health Concerns Infection Onset Date Last Indicated Resolved Time Contact- MRSA 11/29/2012 11/29/2012 05/24/2020 7:38 AM CDT COVID-19 Rule Out 05/23/2020 05/23/2020 05/24/2020 2: 58 AM CDT documented as of this encounter Insurance Payer Benefit Plan Subscriber ID Effective Phone Address Typ e / Group Dates 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
--- OUTSIDE RECORDS SUMMARY | 2020-07-25 07:01 | XMS REPORT | Summary of Care ---
:1980 Author Organization [facility] [employer] [facility] Address [address] [place] [address] Care Team Providers Name Role Phone Manuel Izquierdo MD Primary Care Provider Encounter Details Date Type Department Care Team Description 05/24/2020 Letter (Out) [facility] Haydee Dang RN [address] [place] [phone] Allergies Active Allergy Reactions Severity Noted Date Comments Aspirin 10/20/2005 Mupirocin Rash 06/09/2014 Propoxyphene N-Acetaminophen 10/20/2005 Gabapentin Hives 05/02/2019 Sulfa (Sulfonamide Antibiotics) Rash 4 Reaction to Bactrim DS Tramadol Hives 06/09/2014 documented as of this encounter (statuses as of 05/24/2020) Medications Medication Sig Dispensed Refills Start Date End Date Status HYDROcodone-acetami Take 1 tablet by 90 tablet 0 09/02/2019 Active nophen (NORCO) mouth every 6 (six) 10-325 mg hours as needed for tabletIndications: Pain (scale 4-6). Bronchitis NARCAN 4 ADMINISTER A SINGLE 0 11/04/2019 Active mg/actuation [place] SPRAY INTRANASALLY INTO ONE NOSTRIL. CALL 911. [...] as of this encounter (statuses as of 05/24/2020) Active Problems Problem Noted Date S/P IVC filter 03/27/2017 Hip pain, chronic, left 06/12/2014 Human immunodeficiency virus (HIV) disease 08/04/2012 Hepatitis B virus infection 08/04/2012 documented as of this encounter (statuses as of 05/24/2020) Resolved Problems Problem Noted Date Resolved Date Rash 11/25/2013 03/05/2016 Oral candidiasis 08/11/2012 03/05/2016 MRSA infection 08/04/2012 03/05/2016 Hepatitis B, chronic 08/04/2012 08/04/2012 documented as of this encounter (statuses as of 05/24/2020) Immunizations Name Administration Dates Next Due Influenza [...] Signs Not on filedocumented in this encounter Plan of Treatment Date Type Specialty Care Team Description 07/06/2020 Office Visit Infectious Disease Anu Izquierdo MD [address] [address] [phone] Health Maintenance Due Date Last Done Comments [...] 11/29/2012 11/29/2012 COVID-19 Rule Out 05/23/2020 05/23/2020 05/24/2020 2: 58 AM CDT documented as of this encounter Insurance Payer Benefit Plan Subscriber ID Effective Phone Address Typ e / Group Dates [facility] MEDICAID OF [id number] 2018-Pres [phone]i [facility] ent [phone] [place] [address] HUMANA - HUMANA [id number] 2020-Pre Medica re Adv MANAGED MEDICARE sent FFS MEDICARE documented as of this encounter Advance Directives Type Date Recorded 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
--- OUTSIDE RECORDS SUMMARY | 2020-07-25 07:02 | XMS REPORT | Summary of Care ---
:1980 Author Organization [facility] Address [address] [place] [address] Care Team Providers Name Role Phone Manuel Izquierdo MD Primary Care Provider Reason for Visit Reason Comments Referral/consult Pain Management Encounter Details Date Type Department Care Team Description 05/18/2020 Telephone [facility] Infectious Yury Izquierdo, Referral/consult (Pain Diseases- [place] MD Management) [address] 6th Floor [address] [place], [place] [phone] [address] [phone] Allergies Active Allergy Reactions Severity Noted Date Comments Aspirin 10/20/2005 Mupirocin Rash 06/09/2014 Propoxyphene N-Acetaminophen 10/20/2005 Gabapentin Hives 05/02/2019 Sulfa (Sulfonamide Antibiotics) Rash 4 Reaction to Bactrim DS Tramadol Hives 06/09/2014 documented as of this encounter (statuses as of 05/30/2020) Medications Medication Sig Dispensed Refills Start Date End Date Status HYDROcodone-acetamin Take 1 tablet by 90 tablet 0 09/02/2019 Active ophen (NORCO) 10-325 mouth every 6 (six) mg hours as needed for tabletIndications: Pain (scale 4-6). Bronchitis NARCAN 4 ADMINISTER A SINGLE 0 11/04/2019 Active mg/actuation [place] SPRAY INTRANASALLY INTO ONE NOSTRIL. CALL 911. MAY REPEAT X 1. tiZANidine 2 mg TAKE 1 CAPSULE BY 0 10/08/2019 Active capsule MOUTH EVERY 6 HOURS DIRECTED FOR 30 DAYS tiZANidine 2 mg TAKE 1 TABLET BY 0 12/02/2019 Active tablet MOUTH EVERY 6 HOURS DIRECTED FOR 30 DAYS uxhcgvvsd-dejzbzjw-b Take 1 tablet by 30 tablet 6 04/22/2020 Active enofov ala 50-200-25 mouth daily. mg tabletIndications: Need for vaccination documented as of this encounter (statuses as of 05/30/2020) Active Problems Problem Noted Date S/P IVC filter 03/27/2017 Hip pain, chronic, left 06/12/2014 Human immunodeficiency virus (HIV) disease 08/04/2012 Hepatitis B virus infection 08/04/2012 documented as of this encounter (statuses as of 05/30/2020) Resolved Problems Problem Noted Date Resolved Date Rash 11/25/2013 03/05/2016 Oral candidiasis 08/11/2012 03/05/2016 MRSA infection 08/04/2012 03/05/2016 Hepatitis B, chronic 08/04/2012 08/04/2012 documented as of this encounter (statuses as of 05/30/2020) Immunizations Name Administration Dates Next Due Influenza [...] this encounter Miscellaneous Notes Telephone Encounter - Geraldine Samano - 05/24/2020 8:48 AM CDTEncounter has approached the 72hr deadline, please review and close! Thank you elephone Encounter - Lesli Peterson RN - 05/18/2020 2:42 PM CDTWe never received records from his pain doctor's office, as Edgar requested. Patient had told me he would call me back for our fax number, but never did. Per Edgar, we need records before placing another referral. I spoke with patient today and asked him to please have his Pain doctor's office fax us some chart notes for the referral, per Edgar. He said (again) that he does not have a pen to write our fax numberdown. (this is what happened when we last spoke too, he said he would call me back but never did). Advised patient that we cant do the referral until we get those records. He asked me to call him back in 5 minutes. 2:16pm Tried reaching patient back, his phone is not going thru, it is giving me a fast busy signal. elephone Encounter - Geraldine Samano - 05/18/2020 11:52 AM CDT Saleem Erickson is a 40 year old male Patient is calling to get a referral for his 6 month FOLLOW-UP visit with Pain management Dr. Plunkett Please fax to FAX- [phone] Thank you documented in this encounter Plan of Treatment Date Type Specialty Care Team Description 07/06/2020 Office Visit Infectious Disease Anu Izquierdo MD [address] [address] 555 [phone] Health Maintenance Due Date Last Done Comments [...] Effective Dates Phone Addre ss Type Group [facility] MEDICAID OF [id number] 2018-Present [phone] [address] Medicaid [place] [id number] [place] [phone] documented as of this encounter Advance Directives Type Date Recorded Patient Oncology Coordinator Explanati on Advance Directives and Living Will Power of Mining Detail Draftsperson
--- OUTSIDE RECORDS SUMMARY | 2020-07-25 07:02 | XMS REPORT | Summary of Care ---
:1980 Author Organization [facility] Address [address] [place] [address] Care Team Providers Name Role Phone Manuel Izquierdo MD Primary Care Provider Reason for Visit Reason Comments Follow-up Encounter Details Date Type Department Care Team Description 04/05/2020 Office Visit [facility], [place], Human immunod eficiency virus (HIV) disease (Primary Dx); Infectious Diseases- [place] Chronic hepatitis B; [address] HIV disease; [facility] [id number] SHANTAL (generalized anxiety disorder); [address] [facility], 6th Floor [id number] [place] [address] [phone] Allergies Active Allergy Reactions Severity Noted Date Comments Aspirin 10/20/2005 Mupirocin Rash 06/09/2014 Propoxyphene N-Acetaminophen 10/20/2005 Gabapentin Hives 05/02/2019 Sulfa (Sulfonamide Antibiotics) Rash 4 Reaction to Bactrim DS Tramadol Hives 06/09/2014 documented as of this encounter (statuses as of 06/13/2020) Medications Medication Sig Dispensed Refills Start Date End Date Status HYDROcodone-acet Take 1 tablet by 90 tablet 0 09/02/2019 Active aminophen mouth every 6 (NORCO) 10-325 (six) hours as mg needed for Pain tabletIndication (scale 4-6). s: Bronchitis NARCAN 4 ADMINISTER A 0 11/04/2019 Active mg/actuation SINGLE SPRAY [place] INTRANASALLY INTO ONE NOSTRIL. CALL 911. MAY REPEAT X 1. tiZANidine 2 mg TAKE 1 CAPSULE BY 0 10/08/2019 Active capsule MOUTH EVERY 6 HOURS DIRECTED FOR 30 DAYS tiZANidine 2 mg TAKE 1 TABLET BY 0 12/02/2019 Active tablet MOUTH EVERY 6 HOURS DIRECTED FOR 30 DAYS bictegrav-emtric Take 1 tablet by 30 tablet 6 09/02/201904/22 Discontinued it-tenofov ala mouth daily. 20 (R eorder) 50-200-25 mg tabletIndication s: Need for vaccination fluconazole 100 TAKE 1 TABLET BY 7 tablet 3 12/18/2019 Discontinued mg MOUTH ONCE DAILY 20 tabletIndication FOR 7 DAYS s: Oral candidiasis documented as of this encounter (statuses as of 06/13/2020) Active Problems Problem Noted Date S/P IVC filter 03/27/2017 Hip pain, chronic, left 06/12/2014 Human immunodeficiency virus (HIV) disease 08/04/2012 Hepatitis B virus infection 08/04/2012 documented as of this encounter (statuses as of 06/13/2020) Resolved Problems Problem Noted Date Resolved Date Rash 11/25/2013 03/05/2016 Oral candidiasis 08/11/2012 03/05/2016 MRSA infection 08/04/2012 03/05/2016 Hepatitis B, chronic 08/04/2012 08/04/2012 documented as of this encounter (statuses as of 06/13/2020) Immunizations Name Administration Dates Next Due Influenza [...] Sign Reading Time Taken Comments Blood Pressure 109/71 04/05/2020 4:16 PM CDT Pulse 92 04/05/2020 4:16 PM CDT Temperature 37.1 C (98.7 F) 04/05/2020 4:16 PM CDT Respiratory Rate - - Oxygen Saturation - - Inhaled Oxygen Concentration - - Weight 77.5 kg (170 lb 14.4 oz) 04/05/2020 4:16 PM CDT Height 172.7 cm (5' 8") 04/05/2020 4:16 PM CDT Body Mass Index 25.99 04/05/2020 4:16 PM CDT documented in this encounter Progress Notes Rex Escamilla PA - 04/05/2020 3:30 PM CDT ID clinic note [facility] 04/05/20 CC: HIV schedule visit HPI: Mr. Erickson is a 40 y.o WM who presents today for a HIV visit. He is followed by Dr. Izquierdo int ID clinic. He c/o chronic back and joint pain He is prescribed [place] (7.5/325) 1 po TID #[address] Rolan Flowers in [place]. He asked if we could prescribed and I declined He has been feeling okay overall. + anxiety - takes lorazepam prn Denies feeling depressed He reports having a sore tongue periodically that resolves with fluconazole He reports taking his ARVs regularly ALLERGIES Allergies Allergen Reactions Aspirin Bactroban [Mupirocin] Rash Darvocet A500 [Propoxyphene N-Acetaminophen] Gabapentin Hives Sulfa (Sulfonamide Antibiotics) Rash Reaction to Bactrim DS Tramadol Hives MEDICATIONS Current Outpatient Medications Medication Sig Dispense Refill fluconazole 100 mg tablet TAKE 1 TABLET BY MOUTH ONCE DAILY FOR 7 DAYS 7 tablet 3 NARCAN 4 mg/actuation [place] ADMINISTER A SINGLE SPRAY INTRANASALLY INTO ONE NOSTRIL. CALL 911. MAY REPEAT X 1. tiZANidine 2 mg capsule TAKE 1 CAPSULE BY MOUTH EVERY 6 HOURS DIRECTED FOR 30 DAYS tiZANidine 2 mg tablet TAKE 1 TABLET BY MOUTH EVERY 6 HOURS DIRECTED FOR 30 DAYS HYDROcodone-acetaminophen (NORCO) 10-325 mg tablet Take 1 tablet by mouth every 6 (six) hours asneeded for Pain (scale 4-6). 90 tablet 0 ukeoryhss-nfjzxfsx-fufdffa ala 50-200-25 mg tablet Take 1 tablet by mouth daily. 30 tablet 6 No current facility-administered medications for this visit. HISTORY Past Medical History: Diagnosis Date Anxiety DVT (deep venous thrombosis) Hepatitis B Hip hematoma, right HIV (human immunodeficiency virus infection) S/P insertion of IVC (inferior vena caval) filter REVIEW OF SYSTEMS (-)=Negative (+)=Positive General: (+) fatigue, (-) fever, (-) chills, (-) weight change, (-) dizziness, (-) change in appetite Skin: (-) rash, (-) lesion HEENT: (-) headache, (-) nasal discharge, (-) sore throat Respiratory system: (-) cough, (-) shortness of breath Cardiovascular: (-) chest pain Gastrointestinal: (-) abdominal pain, (-) nausea, (-) vomiting, (-) diarrhea, (- ) constipation Genitourinary: (-) dysuria, (-) difficulty urinating Neurological: (-) numbness, (-) tingling Back: (-) pain Extremities / musculoskeletal: (-) muscle pain, (-) joint pain Psycho / social: (-) anxiety, (-) depression PHYSICAL EXAM BP 109/71 | Pulse 92 | Temp 37.1 C (98.7 F) (Oral) | Ht 5' 8" (1.727 m) | Wt 170 lb 14.4 oz (77.5 kg) | BMI 25.99 kg/m Gen: looks well ENT: OP clear, MMM, scler anicteric Cardio: RRR Lungs: CTA Abd: soft, NTP, ND, without HSM Ext: no c/c/e Skin: without johnson erythema or spider angiomata Lymph: no [facility] 09/02/19 HIV-1 RT PCR = not detected CD4 = 570 03/05/16 HBV PCR = undetectable , Ref. Range 09/02/2019 12:51 ALK PHOS Latest Ref Range: 34 - 122 U/L 104 ALTv Latest Ref Range: 5 - 50 U/L 18 AST(SGOT) Latest Ref Range: 13 - 40 U/L 43 (H) Ref. Range 09/02/2019 12:51 NA Latest Ref Range: 135 - 145 mmol/L 140 K Latest Ref Range: 3.5 - 5.0 mmol/L 4.6 CL Latest Ref Range: 98 - 108 mmol/L 95 (L) CO2 TOTAL Latest Ref Range: 23 - 31 mmol/L 32 (H) AGAP Latest Ref Range: 2 - 16 13 BUN Latest Ref Range: 7 - 23 mg/dL 7 GLUCOSE Latest Ref Range: 70 - 110 mg/dL 108 CREATININE Latest Ref Range: 0.60 - 1.25 mg/dL 0.76 eGFR CALCULATION (non ) Latest Units: mL/min/1.73m2 113.6 eGFR CALCULATION () Latest Units: mL/min/1.73m2 137.7 TOTAL BILI Latest Ref Range: 0.1 - 1.1 mg/dL 0.6 BILI UNCON Latest Ref Range: 0.1 - 1.1 mg/dL 0.2 BILI CONJ Latest Ref Range: 0.0 - 0.3 mg/dL 0.0 CALCIUM Latest Ref Range: 8.6 - 10.6 mg/dL 9.9 T PROTEIN Latest Ref Range: 6.3 - 8.2 g/dL 8.1 ALBUMIN Latest Ref Range: 3.5 - 5.0 g/dL 4.7 RADIOLOGY Last liver imaging was in 06/06 ASSESSMENT/PLAN 1. Human immunodeficiency virus (HIV) disease - well controlled with a CD4 of 570 and a persistent undetectable VL - check HIV1 BY REAL-TIME PCR QUANT, CD4 SUBSET ASSAY, CMP, LIPID PANEL - continue Biktarvy 2. Chronic hepatitis B - with normal liver enzymes - check HEPATITIS BE AB, HEPATITIS BE AG, HBV BY REAL-TIME PCR,, PROTHROMBIN TIME INR, ALPHA FETOPROTEIN - continue Biktarvy - order Abd US on RTC 3. Polycythemia, erythrocytosis, and leukocytosis - check CBC 4. Healthcare maintenance - Prevnar 09/09 - Pneumovax 12/06 - TdAP 09/07 - check HCV abd - check QUANTIFERON-TB ASSAY, SYPHILIS IGG/IGM RTC [address] Izquierdo documented in this encounter Plan of Treatment Date Type Specialty Care Team Description 07/06/2020 Office Visit Infectious Disease Anu Izquierdo MD [address] [facility] [address] [phone] Name Type Priority Associated Diagnoses Order S chedule HIV1 BY REAL-TIME PCR LAB Routine Human immunodeficie ncy virus Expected: QUANT (HIV) disease 04/05/2020, Ex darby: 04/05/2021 CD4 SUBSET ASSAY LAB Routine Human immunodeficiency v irus Expected: (HIV) disease 04/05/2020, Ex darby: 04/05/2021 COMP. METABOLIC PANEL LAB Routine Human immunodeficie ncy virus Expected: ([id number]) (HIV) disease 04/05/2020, Ex darby: 04/05/2021 LIPID PANEL LAB Routine Human immunodeficiency virus Expected: ([id number])(TOTAL (HIV) disease 04/05/2020, E xpires: CHOLESTEROL, 04/05/2021 TRIGLYCERIDES, HDL) HEPATITIS BE AB LAB Routine Chronic hepatitis B Expec rigo: 04/05/2020, Exp ires: 10/06/2020 HEPATITIS BE AG LAB Routine Chronic hepatitis B Expec rigo: 04/05/2020, Exp ires: 10/06/2020 HBV BY REAL-TIME PCR LAB Routine Chronic hepatitis B Expected: 04/05/2020, Exp ires: 10/06/2020 HCV AB LAB Routine Chronic hepatitis B Expected : 04/05/2020, Exp ires: 10/06/2020 [facility]: 04/05/2020, Exp ires: 10/06/2020 GALV ONLY - SYPHILIS LAB Routine [facility] Expected: IGG/IGM 04/05/2020, Exp ires: 10/06/2020 PROTHROMBIN TIME / INR LAB Routine Chronic hepatitis B Expected: 04/05/2020, Exp ires: 10/06/2020 ALPHA FETOPROTEIN LAB Routine Chronic hepatitis B Exp ected: 04/05/2020, Exp ires: 10/06/2020 Health Maintenance Due Date Last Done Comments PNEUMOCOCCAL 0-64 YEARS COMBINED 11/24/2017 09/15/2014, 08/2012 SERIES (3 of 3 - PPSV23) INFLUENZA VACCINE (#1) 2020 09/02/2019, 09/15/2014, 07/22/2013, Additional history exists Depression Screening 09/02/2020 09/02/2019 DTaP,Tdap,and Td Vaccines (2 - Td) 09/08/2022 09/08/2012 documented as of this encounter Results Not on filedocumented in this encounter Visit Diagnoses Diagnosis Human immunodeficiency virus (HIV) disea se - Primary Human immunodeficiency virus [HIV] disea se Chronic hepatitis B Viral hepatitis B without mention of hep atic coma, chronic, without mention of hepatitis delta HIV disease Human immunodeficiency virus [HIV] disea se SHANTAL (generalized anxiety disorder) Generalized anxiety disorder Healthcare maintenance Routine general medical examination at a health care facility documented in this encounter Additional Health Concerns Infection Onset Date Last Indicated Resolved Time Contact- MRSA 11/29/2012 11/29/2012 05/24/2020 7:38 AM CDT documented as of this encounter Insurance Payer Benefit Plan / Subscriber ID Effective Dates Phone Addre ss Type Group [facility] MEDICAID OF [id number] 2018-Present [phone] [address] Medicaid [place] [id number] [place] [id number] [phone] (Work) documented as of this encounter Advance Directives Type Date Recorded 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
--- OUTSIDE RECORDS SUMMARY | 2020-07-25 07:02 | XMS REPORT | Summary of Care ---
:1980 Author Organization [facility] Address [address] [place] [address] Care Team Providers Name Role Phone Manuel Izquierdo MD Primary Care Provider Reason for Visit Reason Comments Follow-up Encounter Details Date Type Department Care Team Description 04/05/2020 Office Visit [facility], [place], Human immunod eficiency virus (HIV) disease (Primary Dx); Infectious Diseases- [place] Chronic hepatitis B; [address] HIV disease; [facility] [id number] SHANTAL (generalized anxiety disorder); [facility] [facility], 6th Floor [address] [place] [address] [phone] Allergies Active Allergy Reactions Severity Noted [...] A 0 11/04/2019 Active mg/actuation SINGLE SPRAY [place] INTRANASALLY INTO ONE NOSTRIL. CALL 911. MAY [...] back and joint pain He is prescribed [place] (7.5/325) 1 po TID #[address] Rolan Flowers in [place]. He asked if we could prescribed and [...] DAYS 7 tablet 3 NARCAN 4 mg/actuation [place] ADMINISTER A SINGLE SPRAY INTRANASALLY INTO ONE [...] for Pain (scale 4-6). 90 tablet 0 mpblvnytg-rvqqzlul-akxwzun ala 50-200-25 mg tablet Take 1 tablet [...] Visit Infectious Disease Anu Izquierdo MD [address] [facility] [address] [phone] Name Type Priority Associated Diagnoses Order S chedule HIV1 BY REAL-TIME PCR LAB Routine Human immunodeficie ncy virus Expected: QUANT (HIV) disease 04/05/2020, Ex darby: 04/05/2021 CD4 SUBSET ASSAY LAB Routine Human immunodeficiency v irus Expected: (HIV) disease 04/05/2020, Ex darby: 04/05/2021 COMP. METABOLIC PANEL LAB Routine Human immunodeficie ncy virus Expected: ([id number]) (HIV) disease 04/05/2020, Ex darby: 04/05/2021 LIPID PANEL LAB Routine Human immunodeficiency virus Expected: ([id number])(TOTAL (HIV) disease 04/05/2020, E xpires: CHOLESTEROL, 04/05/2021 [...] ires: 10/06/2020 QUANTIFERON-TB ASSAY LAB [facility] Expected: 04/05/2020, Exp ires: 10/06/2020 GALV ONLY - SYPHILIS LAB Routine [facility] Expected: IGG/IGM 04/05/2020, Exp ires: 10/06/2020 [...] Effective Dates Phone Addre ss Type Group [facility] MEDICAID OF [id number] 2018-Present [phone] [address] [place] [id number] [place] [phone] (Work) documented as of this encounter Advance Directives Type Date Recorded 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
--- OUTSIDE RECORDS SUMMARY | 2020-07-25 07:03 | XMS REPORT | Summary of Care ---
:1980 Author Organization [facility] Address [address] [place] [address] Care Team Providers Name Role Phone Manuel Izquierdo MD Primary Care Provider Reason for Visit Reason Comments Referral/consult Encounter Details Date Type Department Care Team Description 06/13/2020 Telephone [facility] Infectious Iker Izquierdo MD Referral/consult Diseases- [place] [id number] [place], [place] [id number] [place] [address] Allergies Active Allergy Reactions Severity Noted Date Comments Aspirin 10/20/2005 Mupirocin Rash 06/09/2014 Propoxyphene N-Acetaminophen 10/20/2005 Gabapentin Hives 05/02/2019 Sulfa (Sulfonamide Antibiotics) Rash 4 Reaction to Bactrim DS Tramadol Hives 06/09/2014 documented as of this encounter (statuses as of 07/14/2020) Medications Medication Sig Dispensed Refills Start Date End Date Status HYDROcodone-acetami Take 1 tablet by 90 tablet 0 09/02/2019 Active nophen (NORCO) mouth every 6 (six) 10-325 mg hours as needed for tabletIndications: Pain (scale 4-6). Bronchitis NARCAN 4 ADMINISTER A SINGLE 0 11/04/2019 Active mg/actuation [place] SPRAY INTRANASALLY INTO ONE NOSTRIL. CALL 911. MAY REPEAT X 1. tiZANidine 2 mg TAKE 1 CAPSULE BY 0 10/08/2019 Active capsule MOUTH EVERY 6 HOURS DIRECTED FOR 30 DAYS tiZANidine 2 mg TAKE 1 TABLET BY 0 12/02/2019 Active tablet MOUTH EVERY 6 HOURS DIRECTED FOR 30 DAYS bictegrav-emtricit- Take 1 tablet by 30 tablet 6 04/22/2020 Active tenofov ala mouth daily. 50-200-25 mg tabletIndications: Need for vaccination FLUCONAZOLE 100 mg Take 1 tablet by 7 tablet 0 05/25/2020 Active tabletIndications: mouth once daily for Oral candidiasis 7 days doxycycline hyclate Take 1 capsule by 20 [...] as of this encounter (statuses as of 07/14/2020) Active Problems Problem Noted Date S/P IVC filter 03/27/2017 Hip pain, chronic, left 06/12/2014 Human immunodeficiency virus (HIV) disease 08/04/2012 Hepatitis B virus infection 08/04/2012 documented as of this encounter (statuses as of 07/14/2020) Resolved Problems Problem Noted Date Resolved Date Rash 11/25/2013 03/05/2016 Oral candidiasis 08/11/2012 03/05/2016 MRSA infection 08/04/2012 03/05/2016 Hepatitis B, chronic 08/04/2012 08/04/2012 documented as of this encounter (statuses as of 07/14/2020) Immunizations Name Administration Dates Next Due Influenza [...] been in contact with No / Unsure 07/12/2020 9:40 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 documented as of this encounter Last Filed Vital Signs Not on filedocumented in this encounter Miscellaneous Notes Telephone Encounter - Ivette Lane - 07/05/2020 10:31 AM CSTPlease reviewand close encounter. Thank you. elephone Encounter - Lesli Peterson RN - 06/27/2020 10:51 AM CST A while back (05/18/20) when patient requested outside pain management referral, Edgar had requested for patient to have the pain management doctor he was seeing to send us some progress notes before referral being sent to. 8:21 AM You routed this conversation to Rex Escamilla PA Infectious Disease Nurse Rex Escamilla PA 1:39 PM Note He is seeing a pain doctor locally and would need to have those records faxed to us and scanned in before placing a referral Still awaiting those notes... I will call patient elephone Encounter - Ivette Lane - 06/27/2020 8:59 AM FIELD SERVICER Please reviewand close encounter. Thank you. elephone Encounter - Ivette Lane - 06/13/2020 12:57 PM MICHELLEcaraus Vincent Erickson is a 40 year old male is requesting a external pain mgmt referral to Dr. Plunkett Please fax to [phone] signed by Ivette Lane at 06/13/2020 12:58 PM CDTdocumented in this encounter Plan of Treatment Health Maintenance Due Date Last Done Comments PNEUMOCOCCAL 0-64 YEARS COMBINED 11/24/2017 09/15/2014, 08/2012 SERIES (3 of 3 - PPSV23) INFLUENZA VACCINE (#1) 2020 09/02/2019, 09/15/2014, 07/22/2013, Additional history exists Depression Screening 09/02/2020 09/02/2019 DTaP,Tdap,and Td Vaccines (2 - Td) 09/08/2022 09/08/2012 documented as of this encounter Results Not on filedocumented in this encounter Insurance Payer Benefit Plan Subscriber ID Effective Phone Address Typ e / Group Dates [facility] MEDICAID OF [id number] 2018-Pres [phone] [facility] [phone] [place] [address] HUMANA - HUMANA [id number] 2019-Pres Medica re Adv MANAGED MEDICARE ent FFS MEDICARE documented as of this encounter Advance Directives Type Date Recorded 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
--- OUTSIDE RECORDS SUMMARY | 2020-07-25 07:03 | XMS REPORT | Summary of Care ---
:1980 Author Organization [facility] - [facility] Address [address] [place] [id number] Care Team Providers Name Role Phone Manuel Izquierdo MD Primary Care Provider Reason for Visit Reason Comments Leg Pain Auth/Cert Status Reason Specialty Diagnoses / Referred By Referred To Procedures Contact Contact Emergency Medicine [facility] Em ergency Dept [address] [place] [id number] Fax: Encounter Details Date Type Department Care Team Description 07/12/2020 Emergency ADC-Emergency Angie Mart PAC Other chronic pain (Primary Dx); Department [address] [facility] Bilateral foot pain [address] [place], [place] [address] [address] [address] [phone] [place] [address] [phone] Allergies Active Allergy Reactions Severity Noted Date Comments Aspirin 10/20/2005 Mupirocin Rash 06/09/2014 Propoxyphene N-Acetaminophen 10/20/2005 Gabapentin Hives 05/02/2019 Sulfa (Sulfonamide Antibiotics) Rash 4 Reaction to Bactrim DS Tramadol Hives 06/09/2014 documented as of this encounter (statuses as of 07/12/2020) Medications Medication Sig Dispensed Refills Start Date End Date Status HYDROcodone-acetami Take 1 tablet by 90 tablet 0 09/02/2019 Active nophen (NORCO) mouth every 6 (six) 10-325 mg hours as needed for tabletIndications: Pain (scale 4-6). Bronchitis NARCAN 4 ADMINISTER A SINGLE 0 11/04/2019 Active mg/actuation Burden SPRAY INTRANASALLY INTO ONE NOSTRIL. CALL 911. [...] as of this encounter (statuses as of 07/12/2020) Active Problems Problem Noted Date S/P IVC filter 03/27/2017 Hip pain, chronic, left 06/12/2014 Human immunodeficiency virus (HIV) disease 08/04/2012 Hepatitis B virus infection 08/04/2012 documented as of this encounter (statuses as of 07/12/2020) Resolved Problems Problem Noted Date Resolved Date Rash 11/25/2013 03/05/2016 Oral candidiasis 08/11/2012 03/05/2016 MRSA infection 08/04/2012 03/05/2016 Hepatitis B, chronic 08/04/2012 08/04/2012 documented as of this encounter (statuses as of 07/12/2020) Immunizations Name Administration Dates Next Due Influenza [...] with No / Unsure 07/12/2020 9:40 PM 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 documented as of this encounter Last Filed Vital Signs Vital Sign Reading Time Taken Comments Blood Pressure 160/90 07/12/2020 9:42 PM SERVICE PROMOTER SALESPERSON Pulse 91 07/12/2020 9:42 PM SERVICE PROMOTER SALESPERSON Temperature 37.4 C (99.4 F) 07/12/2020 9:42 PM SERVICE PROMOTER SALESPERSON Respiratory Rate 18 07/12/2020 9:42 PM SERVICE PROMOTER SALESPERSON Oxygen Saturation 96% 07/12/2020 9:42 PM SERVICE PROMOTER SALESPERSON Inhaled Oxygen Concentration - - Weight 77.1 kg (170 lb) 07/12/2020 9:42 PM SERVICE PROMOTER SALESPERSON Height 172.7 cm (5' 8") 07/12/2020 9:42 PM SERVICE PROMOTER SALESPERSON Body Mass Index 25.85 07/12/2020 9:42 PM SERVICE PROMOTER SALESPERSON documented in this encounter Discharge Instructions Angie Greenwood, PAC - 07/12/2020DIAGNOSIS 1. Chronic pain 2. Foot pain NO LIFE-THREATENING FINDINGS ON TODAY'S EXAM. PROCEDURES IN THE ER TODAY: none MEDICATIONS ADMINISTERED IN THE ER TODAY: [place] 5/325 YOUR PRESCRIPTIONS AND [id number] MEDICATION RECOMMENDATIONS: Continue pain medication as previously given SPECIAL CARE INSTRUCTIONS: Take pain medication as you have been prescribed. Follow up with your primary care physician or painting supervisor for further evaluation of your pain. Return to the ER if you start having fever, vomiting or NEW symptoms that you are concerned about. FOLLOW-UP RECOMMENDATIONS: RECOMMEND FOLLOW-UP WITH A PRIMARY CARE PROVIDER OR SPECIALIST IN 2-5 DAYS, ESPECIALLY IF NO IMPROVEMENT IN SYMPTOMS. TO FOLLOW-UP WITHIN THE [facility], TRY THESE OPTIONS (CLINIC APPOINTMENTS AVAILABLE ON [id number] BASIS): 1. SCHEDULE AN APPOINTMENT ONLINE AT WWW[facility] 2. OR CALL THE [facility] ACCESS CENTER AT OR 3. OR CALL YOUR [facility] PHYSICIAN'S OFFICE DIRECTLY IF YOU ARE ALREADY AN ESTABLISHED [facility] PATIENT. OR, YOU MAY FOLLOW-UP WITH A PROVIDER OF YOUR CHOICE, SUCH : 1. A PHYSICIAN OF YOUR CHOICE 2. [facility], . LOCATIONS IN [facility] 3. [facility], [address], [place]; [phone] RETURN TO ER FOR WORSENING OF SYMPTOMS. documented in this encounter ED Notes Kathleen Douglass RN - 07/12/2020 9:40 PM CSTPatient with metal max in left leg on Crewe for chronic pain, has pain management appointment on Saturday but has been out of his medications x 2 days, and reports pain in getting unbearable. New sharp/burning pain in toes of both feet. documented in this encounter Miscellaneous Notes ED Nurse Note - Tucker Moran RN - 07/12/2020 10:46 PM CSTPt given printed and verbal discharge instructions regarding visi Pt encouraged to follow up with pain management - patient given number to access center to better accommodate his scheduling location of pain management visits concerning future appointments. Advised to seek medical attention for new/prolonged/worsening of symptoms. No adverse reaction to meds given in ER noted upon discharge. Pt verbalized understanding of instructions, awake alert oriented, resp reg unlabored, skin w/d, color appropriate for race, moves all ext well, pt leaving amb with steady gait, in no apparent distress, family member driving. ICE PROMOTER SALESPERSON documented in this encounter Plan of Treatment Health Maintenance Due Date Last Done Comments PNEUMOCOCCAL 0-64 YEARS COMBINED 11/24/2017 09/15/2014, 08/2012 SERIES (3 of 3 - PPSV23) INFLUENZA VACCINE (#1) 2020 09/02/2019, 09/15/2014, 07/22/2013, Additional history exists Depression Screening 09/02/2020 09/02/2019 DTaP,Tdap,and Td Vaccines (2 - Td) 09/08/2022 09/08/2012 documented as of this encounter Procedures Procedure Name Priority Date/Time Associated Diagnosis Comme nts ASSIGNMENT OF BENEFITS Routine 07/12/2020 10:22 PM SERVICE PROMOTER SALESPERSON CONSENT/REFUSAL FOR Routine 07/12/2020 9:29 PM DIAGNOSIS AND TREATMENT SERVICE PROMOTER SALESPERSON documented in this encounter Results Not on filedocumented in this encounter Visit Diagnoses Diagnosis Other chronic pain - Primary Bilateral foot pain Pain in limb documented in this encounter Administered Medications Medication Order MAR Action Action Date Dose Rate Site HYDROcodone-acetaminophen Given 07/12/2020 10:46 PM SERVICE PROMOTER SALESPERSON 1 tablet (NORCO 5) 5-325 mg tablet 1 tablet 1 tablet, Oral, ONCE, 1 dose, 07/12/20 at 2315, ROBERT documented in this encounter Insurance Payer Benefit Plan Subscriber ID Effective Phone Address Typ e / Group Dates [facility] MED[facility] OF [id number] 2018-Pres [phone] [place] [phone] [place] [address] HUMANA - HUMANA [id number] 2019-Pres Medica re Adv MANAGED MEDICARE ent FFS MEDICARE [phone] [id number] (Work) documented as of this encounter Advance Directives Type Date Recorded Patient Conduit Helper Explanati on Advance Directives and Living Will Power of Mixer Whipped Topping
[2020-07-25] MEDS ORDERED: PHENYTOIN Inj 1,000 MG in NA CHLORIDE 0.9% 100 ML IV ONE (07:30)
[2020-07-25] MEDS ORDERED: NA CHLORIDE 0.9% 1,000 ML ONE (07:33)
[2020-07-25 07:39] LABS: Basophils % 0.4 % (0-1.3); Hematocrit 59.1 % (39.6-49.0); MPV 6.4 fL (7.6-11.3); RBC Red Blood Cell Count 6.66 M/uL (4.33-5.43)
[2020-07-25 07:57] LABS: Potassium 3.2 mmol/L (3.5-5.1)
--- NOTE | 2020-07-25 08:01 | RAD REPORT ---
EXAM DESCRIPTION: RAD - Chest Single View - 07/25/2020 7:48 am CLINICAL HISTORY: COUGH, seizure COMPARISON: July 24 CT chest and portable chest TECHNIQUE: AP portable chest image was obtained 07/25/2020 7:48 am . FINDINGS: No peripheral mass or consolidation. Interstitial pattern is prominent, accentuated by sha llow inspiration. Trachea is midline the. Heart and vasculature are normal. No measurable pleural eff usion and no pneumothorax. No acute bony abnormality seen. No acute aortic findings suspected. IMPRESSION: No focal lung parenchymal process. Prominent interstitial pattern is present accentuated by shallow inspiration. This could mask minimal interstitial edema or infiltrate.
[2020-07-25] MEDS ORDERED: Levofloxacin 750mg IV 750 MG/150 ML BAG IV ONE (08:30)
[2020-07-25 08:35] LABS: Blood Morphology Comment NOT SEEN (NOT SEEN); Platelet Estimate INCR; Platelets, Giant FEW
--- NOTE | 2020-07-25 09:01 | EDPHYS ---
Physician Documentation [facility] Name: Saleem Erickson Age: 40 yrs Sex: Male : 1980 Arrival Date: 07/25/2020 Time: 07:02 Bed 4 Private MD: ED Physician Man Alvarez HPI: 07/25 07:36 This 40 yrs old Male presents to ER via EMS with complaints of Seizure. rn 07:36 The patient presents after having a possible seizure episode. Seizure onset: just prior rn to arrival. Associated injury: The patient did not suffer any apparent associated injury. Current symptoms: confusion. The patient has not experienced similar symptoms in the past. The patient has been recently seen at the [facility]. Per EMS report, patient with seizure, MANAGER CALL, unknown number, thinks just one, states has hx of seizures, and takes either lorazepam/diazepam/dilantin. Recently seen in ER, diagnosed with pneumonia. Reports productive cough. COVID-19 not back yet. . Historical: - Allergies: 07:07 Amoxicillin; ea 07:07 Fluconazole; ea 07:07 Tizanidine; ea 07:07 VENLAFAXINE; ea - Home Meds: 07:07 hydrocodone-acetaminophen 7.5-325 mg Oral tab 1 tab every 4-6 hours [Active]; ea - PMHx: 07:07 HIV; Anxiety; ea - Immunization history:: Adult Immunizations up to date. - Social history:: Smoking status: unknown. - Family history:: not pertinent. - Hospitalizations: : No recent hospitalization is reported. ROS: 07:36 Constitutional: Negative for fever, chills, and weight loss, Eyes: Negative for injury, rn pain, redness, and discharge, Neck: Negative for injury, pain, and swelling, Cardiovascular: Negative for chest pain, palpitations, and edema, Respiratory: + sob and cough Abdomen/GI: Negative for abdominal pain, nausea, vomiting, diarrhea, and constipation, Back: Negative for injury and pain, MS/Extremity: Negative for injury and deformity, Skin: Negative for injury, rash, and discoloration, Neuro: Negative for weakness, numbness, tingling Exam: 07:36 Constitutional: Thin male, disheveled, dirty Head/Face: Normocephalic, atraumatic. rn Eyes: Pupils equal round and reactive to light, extra-ocular motions intact. ENT: dry MM Neck: No Meningismus. Cardiovascular: Regular rate and rhythm. No pulse deficits. Respiratory: No increased work of breathing, no retractions or nasal flaring. Abdomen/GI: soft, non-tender Skin: Warm, dry MS/ Extremity: Pulses equal, no cyanosis. Neurovascular intact. Full, normal range of motion. Equal circumference. Neuro: Awake and alert, GCS 15, oriented to person, place, and situation. Cranial nerves II-XII grossly intact. Motor strength 5/5 in all extremities. Sensory grossly intact. Cerebellar exam normal. Vital Signs: 07:02 Pulse 98; Resp 18; Temp 98.0; Pulse Ox 95% ; Weight 79.38 kg; Height 5 ft. 8 in. ea (172.72 cm); 07:37 BP 127 / 99; Pulse Ox 93% on R/A; em 07:40 Pulse Ox 96% on 3 lpm NC; em 08:42 BP 138 / 94; Pulse 81; Resp 18; Pulse Ox 98% on 3 lpm NC; em 10:30 BP 134 / 87; Pulse 95; Resp 18; Pulse Ox 98% on 3 lpm NC; em 11:15 Pulse 90; Resp 18; Pulse Ox 96% ; sv 07:02 Body Mass Index 26.61 (79.38 kg, 172.72 cm) ea [place] Coma Score: 07:05 Eye Response: spontaneous(4). Verbal Response: oriented(5). Motor Response: obeys ea commands(6). Total: 15. MDM: 07:03 Patient medically screened. rn 08:57 Differential diagnosis: seizure, EOTH withdrawal, pneumonia, COVID-19.. Data reviewed: rn vital signs, nurses notes, old medical records, lab test result(s), EKG, radiologic studies, plain films, and as a result, I will admit patient. Counseling: I had a detailed discussion with the patient and/or guardian regarding: the historical points, exam findings, and any diagnostic results supporting the discharge/admit diagnosis, lab results, radiology results, the need for further work-up and treatment in the hospital. Response to treatment: the patient's symptoms have mildly improved after treatment, and as a result, I will admit patient. Admission orders: after a detailed discussion of the patient's condition and case, the admit orders are written by me. ED course: Not sure if patient truly has seizures, no activity here, and states only takes ativan for them. Has severe anxiety. CT chest yesterday showed pneumonia, increase in WBC, possible lymphoproliferative disorder given all cell lines up, patient states has been told about this before but not sure what they said. Will admit to Dr. Hayes for further care and w/u. Levaquin given yesterday as well as today .. 07/25 07:05 Order name: CBC with Diff; Complete Time: 08:54 rn 07/25 07:05 Order name: Basic Metabolic Panel; Complete Time: 08:02 rn 07/25 07:45 Order name: Manual Differential; Complete Time: 08:54 EDAR 07/25 07:46 Order name: Blood Culture Adult (2) 07/25 07:46 Order name: Procalcitonin; Complete Time: 08:54 rn 07/25 07:46 Order name: Lactate; Complete Time: 08:25 rn 07/25 07:46 Order name: ETOH Level; Complete Time: 08:25 rn 07/25 07:46 Order name: Urine Drug Screen 07/25 09:27 Order name: CBC with Automated Diff EDAR 07/25 09:27 Order name: CBC with Automated Diff EDAR 07/25 09:27 Order name: Comprehensive Metabolic Panel EDAR 07/25 09:27 Order name: Comprehensive Metabolic Panel EDAR 07/25 09:27 Order name: Protime (+INR) EDAR 07/25 09:27 Order name: Protime (+INR) EDAR 07/25 07:05 Order name: IV Start; Complete Time: 07:33 rn 07/25 07:05 Order name: XRAY Chest (1 view); Complete Time: 08:02 rn 07/25 07:05 Order name: Glucose Level; Complete Time: 07:57 rn 07/25 09:27 Order name: CONS Pharmacy Consult EDAR 07/25 09:27 Order name: Heart Healthy EDAR 07/25 09:27 Order name: EEG Request EDAR 07/25 09:27 Order name: EEG Request EDAR 07/25 09:27 Order name: PTT, Activated Partial Thromb EDMS 07/25 09:27 Order name: PTT, Activated Partial Thromb EDMS Administered Medications: 07:25 Drug: NS 0.9% 1000 ml Route: IV; Rate: 1000 ml; Site: right forearm; em 10:00 Follow up: IV Status: Completed infusion; IV Intake: 1000ml em 07:55 Drug: Phenytoin 1 grams Route: IVPB; Site: right forearm; em 08:30 Follow up: Response: No adverse reaction; IV Status: Completed infusion; IV Intake: em 120ml 08:30 Not Given (Physician Discretion): Ativan 1 mg IVP once em 08:30 Drug: LevaQUIN 750 mg Volume: 150 ml; Route: IVPB; Infused Over: 90 mins; Site: right em forearm; 10:00 Follow up: Response: No adverse reaction; IV Status: Completed infusion; IV Intake: em 150ml 10:05 Drug: [place] 5 mg-325 mg 1 tabs Route: PO; em 11:00 Follow up: Response: No adverse reaction; Marked relief of symptoms; RASS: Alert and em Calm (0) Disposition: 07/25/20 09:00 Hospitalization ordered by Paulino Hayes for Inpatient Admission. Preliminary diagnosis are Possible seizure, Pneumonia, unspecified organism, Dehydration. - Bed requested for Telemetry/MedSurg (Inpatient). - Status is Inpatient Admission. em - Condition is Stable. - Problem is new. - Symptoms have improved. Signatures: Dispatcher [employer] EDMS Radha Maravilla Edgar RN Man Nagy MD MD rn Antunez, Elena, RN RN ea Corrections: (The following items were deleted from the chart) 07:45 07:36 Constitutional: Negative for fever, chills, and weight loss, Eyes: Negative for rn injury, pain, redness, and discharge, Cardiovascular: Negative for chest pain, palpitations, and edema, Respiratory: + sob and cough Abdomen/GI: Negative for abdominal pain, nausea, vomiting, diarrhea, and constipation, MS/Extremity: Negative for injury and deformity, Skin: Negative for injury, rash, and discoloration, Neuro: Negative for weakness, numbness, tingling rn 07:47 07:36 Constitutional: Thin male, disheveled, dirty Head/Face: Normocephalic, rn atraumatic. Eyes: Pupils equal round and reactive to light, extra-ocular motions intact. rn 09:56 09:00 Hospitalization Ordered by Paulino Hayes MD for Inpatient Admission. Preliminary bd diagnosis is Possible seizure; Pneumonia, unspecified organism; Dehydration. Bed requested for Telemetry/MedSurg (Inpatient). Status is Inpatient Admission. Condition is Stable. Problem is new. Symptoms have improved. rn 11:50 09:56 07/25/2020 09:00 Hospitalization Ordered by Paulino Hayes MD for Inpatient em Admission. Preliminary diagnosis is Possible seizure; Pneumonia, unspecified organism; Dehydration. Bed requested for Telemetry/MedSurg (Inpatient). Status is Inpatient Admission. Condition is Stable. Problem is new. Symptoms have improved. bd
--- NOTE | 2020-07-25 09:01 | ER ---
Nurse's Notes [facility] Name: Saleem Erickson Age: 40 yrs Sex: Male : 1980 Arrival Date: 07/25/2020 Time: 07:02 Bed 4 Private MD: Diagnosis: Possible seizure;Pneumonia, unspecified organism;Dehydration Presentation: 07/25 07:02 Chief complaint: EMS states: Pt reported having seizures today, EMS reports pt has not ea been taking his seizure medications. Coronavirus screen: At this time, the client does not indicate any symptoms associated with coronavirus-19. Ebola Screen: No symptoms or risks identified at this time. Initial Sepsis Screen: Does the patient meet any 2 criteria? No. Patient's initial sepsis screen is negative. Does the patient have a suspected source of infection? No. Patient's initial sepsis screen is negative. Risk Assessment: Do you want to hurt yourself or someone else? Patient reports no desire to harm self or others. Onset of symptoms was July 25, 2020. 07:02 Method Of Arrival: EMS: [facility] ea 07:02 Acuity: MARTA 3 ea Triage Assessment: 07:05 General: Appears uncomfortable, unkempt, Behavior is cooperative. Pain: Denies pain. ea Neuro: Level of Consciousness is awake, Oriented to person, place, situation. Respiratory: Airway is patent Respiratory effort is even, unlabored, Respiratory pattern is regular, symmetrical. Historical: - Allergies: 07:07 Amoxicillin; ea 07:07 Fluconazole; ea 07:07 Tizanidine; ea 07:07 VENLAFAXINE; ea - Home Meds: 07:07 hydrocodone-acetaminophen 7.5-325 mg Oral tab 1 tab every 4-6 hours [Active]; ea - PMHx: 07:07 HIV; Anxiety; ea - Immunization history:: Adult Immunizations up to date. - Social history:: Smoking status: unknown. - Family history:: not pertinent. - Hospitalizations: : No recent hospitalization is reported. Screenin:05 Abuse screen: Denies threats or abuse. Nutritional screening: No deficits noted. ea Tuberculosis screening: No symptoms or risk factors identified. Fall Risk None identified. Assessment: 07:15 General: Appears in no apparent distress. uncomfortable, Behavior is calm, cooperative, em appropriate for age, Reports chills for 1-2 days. Pain: Denies pain. Neuro: Level of Consciousness is awake, alert, obeys commands, Oriented to person, place, time, situation, Appropriate for age. Cardiovascular: Capillary refill < 3 seconds Patient's skin is warm and dry. Respiratory: Reports shortness of breath cough that is Airway is patent Respiratory effort is even, unlabored, Respiratory pattern is regular. Derm: Skin is intact, is healthy with good turgor, Skin is pink, warm \T\ dry. Musculoskeletal: Capillary refill < 3 seconds, Range of motion: intact in all extremities. 08:30 Reassessment: Patient appears in no apparent distress at this time. Patient and/or em family updated on plan of care and expected duration. Pain level reassessed. Patient is alert, oriented x 3, equal unlabored respirations, skin warm/dry/pink. 09:35 Reassessment: Patient appears in no apparent distress at this time. Patient and/or em family updated on plan of care and expected duration. Pain level reassessed. Patient is alert, oriented x 3, equal unlabored respirations, skin warm/dry/pink. 10:03 Reassessment: pt reports having walt. hip pain, reports taking norco at home, rates it em 05/05, Dr. Alvarez notified, received VO for 5 mg norco PO x 1. 10:17 Reassessment: called lab to run covid swab from yesterday in house to admit pt to 2nd em floor, warehouse helper and charge nurse notified. Vital Signs: 07:02 Pulse 98; Resp 18; Temp 98.0; Pulse Ox 95% ; Weight 79.38 kg; Height 5 ft. 8 in. ea (172.72 cm); 07:37 BP 127 / 99; Pulse Ox 93% on R/A; em 07:40 Pulse Ox 96% on 3 lpm NC; em 08:42 BP 138 / 94; Pulse 81; Resp 18; Pulse Ox 98% on 3 lpm NC; em 10:30 BP 134 / 87; Pulse 95; Resp 18; Pulse Ox 98% on 3 lpm NC; em 11:15 Pulse 90; Resp 18; Pulse Ox 96% ; sv 07:02 Body Mass Index 26.61 (79.38 kg, 172.72 cm) ea [place] Coma Score: 07:05 Eye Response: spontaneous(4). Verbal Response: oriented(5). Motor Response: obeys ea commands(6). Total: 15. ED Course: 07:02 Patient arrived in ED. ea 07:02 Nimesh Benavidez, ADELA is Primary Nurse. em 07:03 Man Alvarez MD is Attending Physician. rn 07:05 Triage completed. ea 07:06 Arm band placed on right wrist. Patient placed in an exam room, on a stretcher, on ea pulse oximetry. 07:06 Patient has correct armband on for positive identification. Bed in low position. Call ea light in reach. Side rails up X2. hospital monitor on. Pulse ox on. NIBP on. 07:25 Initial lab(s) drawn, by me, sent to lab. Inserted saline lock: 22 gauge in right em forearm, using aseptic technique. Blood collected. 07:48 XRAY Chest (1 view) In Process Unspecified. EDMS 08:59 Paulino Hayes MD is Hospitalizing Provider. rn 11:34 No provider procedures requiring assistance completed. Patient admitted, IV remains in em place. Administered Medications: 07:25 Drug: NS 0.9% 1000 ml Route: IV; Rate: 1000 ml; Site: right forearm; em 10:00 Follow up: IV Status: Completed infusion; IV Intake: 1000ml em 07:55 Drug: Phenytoin 1 grams Route: IVPB; Site: right forearm; em 08:30 Follow up: Response: No adverse reaction; IV Status: Completed infusion; IV Intake: em 120ml 08:30 Not Given (Physician Discretion): Ativan 1 mg IVP once em 08:30 Drug: LevaQUIN 750 mg Volume: 150 ml; Route: IVPB; Infused Over: 90 mins; Site: right em forearm; 10:00 Follow up: Response: No adverse reaction; IV Status: Completed infusion; IV Intake: em 150ml 10:05 Drug: [place] 5 mg-325 mg 1 tabs Route: PO; em 11:00 Follow up: Response: No adverse reaction; Marked relief of symptoms; RASS: Alert and em Calm (0) Intake: 08:30 IV: 120ml; Total: 120ml. em Outcome: 09:00 Decision to Hospitalize by Provider. rn 11:34 Admitted to Med/surg accompanied by tech, family with patient, via wheelchair, room em 212, with oxygen, Report called to ADELA Alexander 11:34 Condition: stable 11:34 Instructed on the need for admit, Demonstrated understanding of instructions. 11:50 Patient left the ED. em Signatures: Dispatcher [employer] Anna Martinez, Nimesh Graf RN, RN RN em Nieto, Roman, MD MD rn Antunez, Elena, RN RN ea
[2020-07-25] MEDS ORDERED: ACETAMINOPHEN 500 MG TAB PO PRN (09:23)
[2020-07-25] MEDS ORDERED: ONDANSETRON 4 MG/2 ML VIAL IV PRN (09:23)
[2020-07-25] MEDS ORDERED: MORPHINE 2 MG/ML SYR IV PRN (09:23)
[2020-07-25] MEDS: levETIRAcetam 500 MG in NA CHLORIDE 0.9% 100 ML IV SCH ×3 (09:30→21:19)
[2020-07-25] MEDS ORDERED: NA CHLORIDE 0.9% 1,000 ML IV SCH (10:00)
[2020-07-25] MEDS ORDERED: HYDROCODONE/APAP 5/325 MG TAB ONE (10:14)
[2020-07-25] MEDS: PIPER/TAZO/NS 3.375gm 3.375 GM/100 ML BAG IVPB SCH ×3 (10:30→17:22)
[2020-07-25 11:55] VITALS: BMI 23.9
[2020-07-25] MEDS: NA CHLORIDE 0.9% 1,000 ML IV SCH ×3 (12:02→21:14)
[2020-07-25] MEDS ORDERED: LORazepam 2 MG/ML VIAL IV ONE (12:20)
[2020-07-25] MEDS: chlordiazePOXIDE HCl 5 MG CAP PO SCH ×2 (12:56→21:07)
[2020-07-25] MEDS: MORPHINE 4 MG/ML SYR IV PRN ×2 (12:57→17:21)
[2020-07-25 16:17] LABS: Barbiturates NEGATIVE (NEGATIVE); Benzodiazepines POSITIVE (NEGATIVE); Cocaine NEGATIVE (NEGATIVE); METHAMPHETAM NEGATIVE (NEGATIVE); Methadone NEGATIVE (NEGATIVE); Opiates POSITIVE (NEGATIVE); Phencyclidine NEGATIVE (NEGATIVE); THC Cannibis NEGATIVE (NEGATIVE)
[2020-07-25] MEDS ORDERED: LORAZEPAM 0.5 MG PO PRN (19:39)
[2020-07-25] MEDS ORDERED: TIZANIDINE 4 MG TABLET PO PRN (19:39)
[2020-07-25] MEDS ORDERED: LORAZEPAM 0.5 MG TABLET PO PRN (20:56)
[2020-07-25] MEDS ORDERED: NA CHLORIDE 0.9% 100 ML ONE (21:27)
[2020-07-25] MEDS ORDERED: LEVETIRACETAM 500 MG/5 ML VIAL IV ONE (21:27)
[2020-07-26] MEDS: PIPER/TAZO/NS 3.375gm 3.375 GM/100 ML BAG IVPB SCH ×2 (00:22→10:31)
[2020-07-26] MEDS: MORPHINE 4 MG/ML SYR IV PRN ×2 (03:41→10:32)
[2020-07-26] MEDS: NA CHLORIDE 0.9% 1,000 ML IV SCH ×3 (05:18→16:00)
[2020-07-26 05:40] LABS: Absolute Lymphocytes (CBC) 1.9 K/uL (0.7-4.9); Basophils % 0.4 % (0-1.3); Hematocrit 54.5 % (39.6-49.0); MPV 6.3 fL (7.6-11.3); RBC Red Blood Cell Count 6.16 M/uL (4.33-5.43)
[2020-07-26 05:50] LABS: Protime INR 1.16
[2020-07-26 06:02] LABS: Albumin 3.8 g/dL (3.4-5.0); Bilirubin Total 1.2 mg/dL (0.2-1.0); Potassium 3.4 mmol/L (3.5-5.1); Protein, Total 7.4 g/dL (6.4-8.2)
--- NOTE | 2020-07-26 07:55 | P.HP ---
Certification for Inpatient Patient admitted to: Inpatient With expected LOS: >2 Midnights Patient will require the following post-hospital care: None Practitioner: I am a practitioner with admitting privileges, knowledge of patient current condition, hospital course, and medical plan of care. Services: Services provided to patient in accordance with Admission requirements found in Title 42 Section 412.3 of the Code of Federal Regulations Patient History Date of Service: 07/25/20 Reason for admission: Altered mental status; seizure disorder; history of HIV History of Present Illness: Patient is a 40-year-old gentleman who came to the hospital after having a seizure. Patient was confused/postictal after his did seizure. Patient has a history of HIV and has been compliant with his medications. Patient was also found have a leukocytosis along with polycythemia and thrombocytosis. The day before patient has come into the emergency room and was started on antibiotics for possible pneumonia. Patient also has a questionable alcohol history. Patient is still postictal and will have a conversation with him when he is more awake and alert. Per prior records patient appears to be compliant with his medications for HIV. He had labs performed a few years ago which were normal. On not really sure if he is having a reaction to his HIV medications, but will get Hematology to consult as well. Allergies aspirin Allergy (Intermediate, Verified 05/06/12 06:19) Hives/Rash gabapentin Allergy (Verified 07/25/20 12:04) Hives/Rash tramadol Allergy (Verified 07/25/20 12:23) Unknown Home Medications: Lorazepam [Ativan] 0.5 mg PO TID PRN 05/07/12 Bictegrav/Emtricit/Tenofov Ala [Biktarvy 50-200-25 mg Tablet] 1 tab PO BEDTIME 07/25/20 Hydrocodone/Acetaminophen [[place] 7.5-325 Tablet] 1 tab PO TID PRN 07/25/20 Tizanidine [Zanaflex*] 1 tab PO QID PRN 07/25/20 - Past Medical/Surgical History Has patient received pneumonia vaccine in the past: No Diabetic: No -: anxiety -: hiv 1999 -: femur fractue 2011 -: ivc filter 2011 - Family History Father Family History: Reviewed- Non-Contributory - Social History Smoking Status: Current every day smoker Alcohol use: No CD- Drugs: Yes Caffeine use: Yes Place of Residence: Home Review of Systems 10-point ROS is otherwise unremarkable Physical Examination - Vital Signs Temperature: 99.0 F Blood Pressure: 154/79 Pulse: 79 Respirations: 20 Pulse Ox (%): 94 - Physical Exam General: Alert, In no apparent distress, Other (Patient is lethargic) HEENT: Atraumatic, PERRLA, Mucous membr. moist/pink, EOMI, Sclerae nonicteric Neck: Supple, 2+ carotid pulse no bruit, No LAD, Without JVD or thyroid abnor mality Respiratory: Clear to auscultation bilaterally, Normal air movement Cardiovascular: Regular rate/rhythm, Normal S1 S2, No murmurs Gastrointestinal: Normal bowel sounds, Soft and benign, Non-distended, No tenderness Musculoskeletal: No clubbing, No swelling, No tenderness Integumentary: No rashes Neurological: Normal gait, Normal speech, Normal strength at 5/5 x4 extr, Normal tone, Sensation intact, Cranial nerves 3-12 intact, Normal affect Lymphatics: No axilla or inguinal lymphadenopathy - Studies Laboratory Data (last 24 hrs) 07/25/20 07:25: Sodium 139, Potassium 3.2 L, BUN 5 L, Creatinine 1.07, Glucose 131 H Assessment & Plan - Problems (Diagnosis) (1) Pneumonia Current Visit: Yes Status: Acute (2) Seizures Current Visit: Yes Status: Acute (3) Postictal state Current Visit: Yes Status: Acute (4) HIV (human immunodeficiency virus infection) Current Visit: Yes Status: Acute (5) Presence of IVC filter Current Visit: Yes Status: Acute - Plan Plan: 1. Continue with anti epileptics 2. Neurology consultation 3. Anxiolytics 4. Will possibly get a hematology consultation. 5. Continue HIV medications 6. Continue IV antibiotics for pneumonia 7. GI and DVT prophylaxis Discharge Plan: Home Plan to discharge in: Greater than 2 days - Advance Directives Does patient have a Living Will: No Does patient have a Durable POA for Healthcare: No - Code Status/Comfort Care Code Status Assessed: Yes Code Status: Full Code Critical Care: No Time Spent Managing PTS Care (In Minutes): 45
[2020-07-26] MEDS: levETIRAcetam 500 MG in NA CHLORIDE 0.9% 100 ML IV SCH (10:31)
[2020-07-26] MEDS: chlordiazePOXIDE HCl 5 MG CAP PO SCH ×2 (10:31→13:19)
[2020-07-26 12:38] VITALS: O2SAT 98
[2020-07-26 18:54] VITALS: BP 147/87; TEMP 98.4
[2020-07-26] MEDS ORDERED: ENSURE ENLIVE 237 ML CAN PO SCH (21:00)
--- NOTE | 2020-07-27 14:56 | EEG ---
CHART: [id number] TEST ID#: [id number] DATE OF STUDY: 07/26/2020 THE EEG WAS RECORDED [place] IN THE PATIENT'S ROOM ON A 17 CHANNEL MACHINE. ELECTRODES WERE APPLIED IN THE USUAL MANNER USING THE INTERNATIONAL 10-20 SYSTEM. THE WAKING BACKGROUND RHYTHM IN THIS RECORD CONSISTS OF WELL DEVELOPED AND WELL ORGANIZED WAVES OF 9 HZ., MAXIMAL IN THE POSTERIOR HEAD REGIONS WHICH ATTENUATE NORMALLY WITH EYE OPENING. LOW-VOLTAGE 18-22 HZ ACTIVITY IS EXPRSSED IN THE FRONTAL REGIONS. THERE ARE NO FOCAL OR LATERALIZING FEATURES. NO EPILEPTIFORM ACTIVITY APPEARS. SLEEP DID NOT OCCUR. HYPERVENTILATION WAS NOT PERFORMED. PHOTIC STIMULATION PRODUCED POOR DRIVING BILATERALLY. IMPRESSION: NORMAL EEG FOR THE AGE OF THE PATIENT IN [place].
--- NOTE | 2020-07-29 15:33 | P.DS ---
Discharge Date: 07/26/20 Disposition: ROUTINE DISCHARGE Discharge Condition: GOOD Reason for Admission: Altered mental status; seizure disorder; history of HIV - Problems (1) Pneumonia Status: Acute (2) Seizures Status: Acute (3) Postictal state Status: Acute (4) HIV (human immunodeficiency virus infection) Status: Acute (5) Presence of IVC filter Status: Acute Brief History of Present Illness: Patient is a 40-year-old gentleman who came to the hospital after having a seizure. Patient was confused/postictal after his did seizure. Patient has a history of HIV and has been compliant with his medications. Patient was also found have a leukocytosis along with polycythemia and thrombocytosis. The day before patient has come into the emergency room and was started on antibiotics for possible pneumonia. Patient also has a questionable alcohol history. Patient is still postictal and will have a conversation with him when he is more awake and alert. Per prior records patient appears to be compliant with his medications for HIV. He had labs performed a few years ago which were normal. On not really sure if he is having a reaction to his HIV medications, but will get Hematology to consult as well. Hospital Course: Patient is feeling much better. He has improved significantly throughout his hospital stay. At this time, he is want to go home. He is following up with an HIV physician as an outpatient. Will get his paperwork ready for him to discharge and I have contacted his infectious disease physician to call me regarding patient's plan of care. Patient will need to have close outpatient monitoring at discharge. Vital Signs/Physical Exam: Temp Pulse Resp BP Pulse Ox 98.4 F 67 18 147/87 H 95 07/26/20 16:00 07/26/20 16:00 07/26/20 16:00 07/26/20 16:00 07/26/20 16:00 General: Alert, In no apparent distress, Oriented x3 Laboratory Data at Discharge: WBC 21.3 K/uL (4.3-10.9) H* D 07/26/20 05:20 Hgb 18.5 g/dL (13.6-17.9) H 07/26/20 05:20 Hct 54.5 % (39.6-49.0) H 07/26/20 05:20 Plt Count 791 K/uL (152-406) H 07/26/20 05:20 PT 13.6 SECONDS (9.5-12.5) H 07/26/20 05:20 INR 1.16 07/26/20 05:20 APTT 34.8 SECONDS (24.3-36.9) 07/26/20 05:20 Sodium 140 mmol/L (136-145) 07/26/20 05:20 Potassium 3.4 mmol/L (3.5-5.1) L 07/26/20 05:20 BUN 8 mg/dL (7-18) 07/26/20 05:20 Creatinine 1.02 mg/dL (0.55-1.3) 07/26/20 05:20 Glucose 100 mg/dL (74-106) 07/26/20 05:20 Total Bilirubin 1.2 mg/dL (0.2-1.0) H 07/26/20 05:20 AST 119 U/L (15-37) H D 07/26/20 05:20 ALT 37 U/L (12-78) 07/26/20 05:20 Alkaline Phosphatase 88 U/L (45-117) 07/26/20 05:20 Home Medications: Lorazepam [Ativan] 0.5 mg PO TID PRN 05/07/12 Bictegrav/Emtricit/Tenofov Ala [Biktarvy 50-200-25 mg Tablet] 1 tab PO BEDTIME 07/25/20 Hydrocodone/Acetaminophen [[place] 7.5-325 Tablet] 1 tab PO TID PRN 07/25/20 Tizanidine [Zanaflex*] 1 tab PO QID PRN 07/25/20 Patient Discharge Instructions: OK TO DC IV AND DC HOME. FOLLOW-UP WITH PRIMARY CARE PROVIDER IN 1-2 WEEKS. FOLLOW-UP WITH Infectious Disease at [facility], Dr. Suárez IN 1-2 WEEKS. RETURN TO THE ER IF symptoms worsen. CALL or TEXT DR. SARAVIA AT [phone] IF ANY QUESTIONS REGARDING HOSPITAL STAY. PLEASE CALL THE FLOOR AT [phone] IF ANY MEDICATION OR NURSING QUESTIONS. Diet: Regular Activity: Fall precautions Time spent managing pt's care (in minutes): 35
== END 2020-07-26 16:33 | disposition home or self-care (01) | DRG 195 ==
LOC: ER 06:58 → ERHOLD 09:23 → 2ND 11:28
PROVIDERS: ADMIT Hospitalist; ATTEND Hospitalist
DX: J18.9 Pneumonia, unspecified organism (principal); D69.6 Thrombocytopenia, unspecified; D75.1 Secondary polycythemia; F17.200 Nicotine dependence, unspecified, uncomplicated; R56.9 Unspecified convulsions; Z88.1 Allergy status to other antibiotic agents; Z88.8 Allergy status to other drugs, medicaments and biological substances; Z79.899 Other long term (current) drug therapy; Z79.891 Long term (current) use of opiate analgesic; Z21 Asymptomatic human immunodeficiency virus [HIV] infection status; Z95.828 Presence of other vascular implants and grafts; Z20.828 Contact with and (suspected) exposure to other viral communicable diseases
CPT/HCPCS: 36415; 71045; 71275; 80048; 80053; 80076; 80307; 80320; 81003; 83605; 83880; 84145; 84484; 85025; 85610; 85730; 87040; 93005; 95819; 96365; 96367; 96374; 99285; J1165; J1953; J2543; J7030; Q9967; U0003

== ENCOUNTER 2020-09-22 10:49 | Emergency (ER) | payer OTHER ==
[2012-05-16 05:02] VITALS: BP 116/72
[2020-09-22] MEDS ORDERED: AMIODARONE HCL 150 MG/3 ML INJ IV ONE (10:50)
[2020-09-22] MEDS ORDERED: SODIUM CHL 0.9% 1000 ML BAG IV ONE (10:50)
[2020-09-22] MEDS ORDERED: EPINEPHrine 1 MG/10 ML SYR IV ONE (10:50)
--- OUTSIDE RECORDS SUMMARY | 2020-09-22 10:53 | XMS REPORT | Summary of Care ---
:1980 Author Organization [facility] - [facility] Address [address] [place] [address] Care Team Providers Name Role Phone Manuel Izquierdo MD Primary Care Provider Encounter Details Date Type Department Care Team Description 08/01/2020 Orders Only [facility] Doctor Unassigned, No [address] [facility] [place] [address] [address] [place] [address] Allergies Active Allergy Reactions Severity Noted Date Comments Aspirin 10/20/2005 Mupirocin Rash 06/09/2014 Propoxyphene N-Acetaminophen 10/20/2005 Gabapentin Hives 05/02/2019 Sulfa (Sulfonamide Antibiotics) Rash 4 Reaction to Bactrim DS Tramadol Hives 06/09/2014 documented as of this encounter (statuses as of 08/01/2020) Medications Medication Sig Dispensed Refills Start Date End Date Status HYDROcodone-acetami Take 1 tablet by 90 tablet 0 09/02/2019 Active nophen (NORCO) mouth every 6 (six) 10-325 mg hours as needed for tabletIndications: Pain (scale 4-6). Bronchitis NARCAN 4 ADMINISTER A SINGLE 0 11/04/2019 Active mg/actuation [place] SPRAY INTRANASALLY INTO ONE NOSTRIL. CALL 911. [...] as of this encounter (statuses as of 08/01/2020) Active Problems Problem Noted Date S/P IVC filter 03/27/2017 Hip pain, chronic, left 06/12/2014 Human immunodeficiency virus (HIV) disease 08/04/2012 Hepatitis B virus infection 08/04/2012 documented as of this encounter (statuses as of 08/01/2020) Resolved Problems Problem Noted Date Resolved Date Rash 11/25/2013 03/05/2016 Oral candidiasis 08/11/2012 03/05/2016 MRSA infection 08/04/2012 03/05/2016 Hepatitis B, chronic 08/04/2012 08/04/2012 documented as of this encounter (statuses as of 08/01/2020) Immunizations Name Administration Dates Next Due Influenza [...] with No / Unsure 07/12/2020 9:40 PM STILL CLEANER someone who was confirmed or suspected to have Coronavirus / COVID-19? documented as of this encounter Last Filed Vital Signs Not on filedocumented in this encounter Plan of Treatment Health Maintenance Due Date Last Done Comments PNEUMOCOCCAL 0-64 YEARS COMBINED 11/24/2017 09/15/2014, 08/2012 SERIES (3 of 3 - PPSV23) INFLUENZA VACCINE (#1) 2020 09/02/2019, 09/15/2014, 07/22/2013, Additional history exists Depression Screening 09/02/2020 09/02/2019 DTaP,Tdap,and Td Vaccines (2 - Td) 09/08/2022 09/08/2012 documented as of this encounter Procedures Procedure Name Priority Date/Time Associated Diagnosis Comme nts EXTERNAL PROVIDER Routine 08/01/2020 12:01 AM STILL CLEANER RECORDS documented in this encounter Results Not on filedocumented in this encounter Insurance Payer Benefit Plan Subscriber ID Effective Phone Address Typ e / Group Dates [employer] MEDICAID OF [id number] 2018-Pres [phone] Medi caid [place] [phone] [place] [address] HUMANA - HUMANA [id number] 2019-Pres Medica re Adv MANAGED MEDICARE ent FFS MEDICARE documented as of this encounter Advance Directives Type Date Recorded 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
--- OUTSIDE RECORDS SUMMARY | 2020-09-22 10:53 | XMS REPORT | Summary of Care ---
:1980 Author Organization [facility] Address [address] [place] [address] Care Team Providers Name Role Phone Manule Izquierdo MD Primary Care Provider Reason for Visit Reason Comments Notification Encounter Details Date Type Department Care Team Description 07/25/2020 Telephone [facility] Infectious Iker Izquierdo MD Notification Diseases- [address] [place] [address] [place] [address] Allergies Active Allergy Reactions Severity Noted Date Comments Aspirin 10/20/2005 Mupirocin Rash 06/09/2014 Propoxyphene N-Acetaminophen 10/20/2005 Gabapentin Hives 05/02/2019 Sulfa (Sulfonamide Antibiotics) Rash 4 Reaction to Bactrim DS Tramadol Hives 06/09/2014 documented as of this encounter (statuses as of 07/26/2020) Medications Medication Sig Dispensed Refills Start Date End Date Status HYDROcodone-acetami Take 1 tablet by 90 tablet 0 09/02/2019 Active nophen (NORCO) mouth every 6 (six) 10-325 mg hours as needed for tabletIndications: Pain (scale 4-6). Bronchitis NARCAN 4 ADMINISTER A SINGLE 0 11/04/2019 Active mg/actuation [employer] SPRAY INTRANASALLY INTO ONE NOSTRIL. CALL 911. [...] as of this encounter (statuses as of 07/26/2020) Active Problems Problem Noted Date S/P IVC filter 03/27/2017 Hip pain, chronic, left 06/12/2014 Human immunodeficiency virus (HIV) disease 08/04/2012 Hepatitis B virus infection 08/04/2012 documented as of this encounter (statuses as of 07/26/2020) Resolved Problems Problem Noted Date Resolved Date Rash 11/25/2013 03/05/2016 Oral candidiasis 08/11/2012 03/05/2016 MRSA infection 08/04/2012 03/05/2016 Hepatitis B, chronic 08/04/2012 08/04/2012 documented as of this encounter (statuses as of 07/26/2020) Immunizations Name Administration Dates Next Due Influenza [...] with No / Unsure 07/12/2020 9:40 PM 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 documented as of this encounter Last Filed Vital Signs Not on filedocumented in this encounter Miscellaneous Notes Telephone Encounter - Kelly Sigala RN - 07/26/2020 2:04 PM CSTNoted. Will inform Yury Izquierdo MD SING MACHINE OPERATOR Telephone Encounter - Ivette Lane - 07/25/2020 11:15 AM CSTMarjacey Erickson is a 40 year old male [facility] patient is admitted at [facility] for a seizure and pneumonia. Thank you. 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
--- OUTSIDE RECORDS SUMMARY | 2020-09-22 10:53 | XMS REPORT | Summary of Care ---
:1980 Author Organization [facility] Address [address] [place] [address] Care Team Providers Name Role Phone Manuel Izquierdo MD Primary Care Provider Reason for Visit Reason Comments Referral/consult Pain Managment Referral need ed Medical Records clinical notes Encounter Details Date Type Department Care Team Description 07/15/2020 Telephone [facility] Infectious Yury Izquierdo, Referral/consult (Pain Diseases- Danish KENNEDY Managment Referral [address] needed ); Medical [address] [place] [address], [place], [place] [address] (clinical 6th Floor [address] notes) [place], [place] [phone] [address] [phone] Allergies Active Allergy Reactions Severity Noted Date [...] ADMINISTER A SINGLE 0 11/04/2019 Active mg/actuation [place] SPRAY INTRANASALLY INTO ONE NOSTRIL. CALL 911. [...] with No / Unsure 07/12/2020 9:40 PM CHART CALCULATOR someone who was confirmed or suspected to have Coronavirus / COVID-19? documented as of this encounter Last Filed Vital Signs Not on filedocumented in this encounter Miscellaneous Notes Telephone Encounter - Kelly Sigala RN - 07/26/2020 1:57 PM CSTPrinted referral and faxed as requested. elephone Encounter - Ivette Lane - 07/15/2020 11:30 AM CSTMarcus Vincent Erickson is a 40 year old male is requesting a external pain mgmt referral to Dr. Plunkett Please fax to [phone] signed by Ivette Lane at 07/15/2020 11:31 AM CSTTelephone Encounter - Ena Decker V - 07/15/2020 11:21 AM Josué from [facility] pain clinic Calling regarding referral that was suppose to be sent from april , patient was made aware that we needed progress notes from pain management clinic since ,Please Fax referral to FAX [phone] Debra Seth And please backdated from April PROGRESS NOTES FROM April 26 2020 WILL BE FAXED TO US TODAY GAVE THEM OUR FAX [phone] TO DEBRA COLLINS . 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
--- OUTSIDE RECORDS SUMMARY | 2020-09-22 10:53 | XMS REPORT | Continuity of Care Document ---
:1980 Author Organization [facility] t Address [address] [place] [address] Care Team Providers Name Role Phone Felecia KENNEDY, H Attending Clinician Problems This patient has no known problems. Allergies, Adverse Reactions, Alerts This patient has no known allergies or adverse reactions. Medications This patient has no known medications. Procedures This patient has no known procedures. Encounters Start End Encounter Admission Attending Care Care Encounter Source Date/Time Date/Time Type Type Clinicians Facility Department ID 2020-09-05 2020-09-05 Telephone EARL Izquierdo [id number] 00:00:00 00:00:00 [place] [facility] [id number] [facility] [id number] 2020-08-09 2020-08-09 Telephone STACEY Izquierdo [id number] 00:00:00 00:00:00 [place] [facility] [id number] [facility] [id number] Results This patient has no known results.
--- OUTSIDE RECORDS SUMMARY | 2020-09-22 10:54 | XMS REPORT | Summary of Care ---
:1980 Author Organization [facility] Address [address] [place] [address] Care Team Providers Name Role Phone Manuel Izquierdo MD Primary Care Provider Reason for Visit Reason Comments Referral/consult Encounter Details Date Type Department Care Team Description 08/08/2020 Telephone [facility] Infectious Iker Izquierdo MD Referral/consult Diseases- [place] [address] [address] [place] [address] Allergies Active Allergy Reactions Severity Noted Date Comments Aspirin 10/20/2005 Mupirocin Rash 06/09/2014 Propoxyphene N-Acetaminophen 10/20/2005 Gabapentin Hives 05/02/2019 Sulfa (Sulfonamide Antibiotics) Rash 4 Reaction to Bactrim DS Tramadol Hives 06/09/2014 documented as of this encounter (statuses as of 08/10/2020) Medications Medication Sig Dispensed Refills Start Date End Date Status HYDROcodone-acetami Take 1 tablet by 90 tablet 0 09/02/2019 Active nophen (NORCO) mouth every 6 (six) 10-325 mg hours as needed for tabletIndications: Pain (scale 4-6). Bronchitis NARCAN 4 ADMINISTER A SINGLE 0 11/04/2019 Active mg/actuation [place] SPRAY INTRANASALLY INTO ONE NOSTRIL. CALL 911. [...] as of this encounter (statuses as of 08/10/2020) Active Problems Problem Noted Date S/P IVC filter 03/27/2017 Hip pain, chronic, left 06/12/2014 Human immunodeficiency virus (HIV) disease 08/04/2012 Hepatitis B virus infection 08/04/2012 documented as of this encounter (statuses as of 08/10/2020) Resolved Problems Problem Noted Date Resolved Date Rash 11/25/2013 03/05/2016 Oral candidiasis 08/11/2012 03/05/2016 MRSA infection 08/04/2012 03/05/2016 Hepatitis B, chronic 08/04/2012 08/04/2012 documented as of this encounter (statuses as of 08/10/2020) Immunizations Name Administration Dates Next Due Influenza [...] with No / Unsure 07/12/2020 9:40 PM MONEY COUNTER someone who was confirmed or suspected to have Coronavirus / COVID-19? documented as of this encounter Last Filed Vital Signs Not on filedocumented in this encounter Miscellaneous Notes Telephone Encounter - Kelly Sigala RN - 08/10/2020 4:56 PM CST July 26, 2020 2:02 PM Note Printed referral and faxed as requested. ,Please Fax referral to FAX [phone] Ambar Seth And please backdated from April PROGRESS NOTES FROM April 26 2020 WILL BE FAXED TO US TODAY GAVE THEM OUR FAX [phone] TO AMBAR COLLINS . elephone Encounter - Priti Longo - 08/08/2020 1:47 PM CSTMarjacey Erickson is a 40 year old male Blanquita from [facility] is calling requesting a referral for pain management. DX CODE:[id number] Provider: Sunni Alegria . 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
--- OUTSIDE RECORDS SUMMARY | 2020-09-22 10:54 | XMS REPORT | Summary of Care ---
:1980 Author Organization [facility] Address [address] [place] [address] Care Team Providers Name Role Phone Manuel Izquierdo MD Primary Care Provider Reason for Visit Reason Comments Rx Concern/Question Encounter Details Date Type Department Care Team Description 08/09/2020 Telephone [facility] Infectious Iker Izquierdo MD Rx Concern/Question Diseases- [place] [address] [place] [address], [address] [place] [address] [place] [address] Allergies Active Allergy Reactions Severity Noted Date Comments Aspirin 10/20/2005 Mupirocin Rash 06/09/2014 Propoxyphene N-Acetaminophen 10/20/2005 Gabapentin Hives 05/02/2019 Sulfa (Sulfonamide Antibiotics) Rash 4 Reaction to Bactrim DS Tramadol Hives 06/09/2014 documented as of this encounter (statuses as of 08/30/2020) Medications Medication Sig Dispensed Refills Start Date End Date Status HYDROcodone-acetami Take 1 tablet by 90 tablet 0 09/02/2019 Active nophen (NORCO) mouth every 6 (six) 10-325 mg hours as needed for tabletIndications: Pain (scale 4-6). Bronchitis NARCAN 4 ADMINISTER A SINGLE 0 11/04/2019 Active mg/actuation [place] SPRAY INTRANASALLY INTO ONE NOSTRIL. CALL 911. [...] as of this encounter (statuses as of 08/30/2020) Active Problems Problem Noted Date S/P IVC filter 03/27/2017 Hip pain, chronic, left 06/12/2014 Human immunodeficiency virus (HIV) disease 08/04/2012 Hepatitis B virus infection 08/04/2012 documented as of this encounter (statuses as of 08/30/2020) Resolved Problems Problem Noted Date Resolved Date Rash 11/25/2013 03/05/2016 Oral candidiasis 08/11/2012 03/05/2016 MRSA infection 08/04/2012 03/05/2016 Hepatitis B, chronic 08/04/2012 08/04/2012 documented as of this encounter (statuses as of 08/30/2020) Immunizations Name Administration Dates Next Due Influenza [...] with No / Unsure 07/12/2020 9:40 PM RAYMOND MILL OPERATOR someone who was confirmed or suspected to have Coronavirus / COVID-19? documented as of this encounter Last Filed Vital Signs Not on filedocumented in this encounter Miscellaneous Notes Telephone Encounter - Lesli Peterson RN - 08/30/2020 2:28 PM CSTCalled and spoke with patient. He's requesting a referral to a different psychrist. The one he wasseeing took him off lorazepam and put him on something else. Patient said he had a grandma seizure and had [address] to the hospital. His potassium was low when he got to the ER, they stabilized him. Patient says he is happy with the pain management dr he is seeing. He needs a newpsychiatrist. Advised patient that it would be best for him to come in for an appointment with Dr. Izquierdo and discuss further with him. He also needs an hospital follow up for seizures. He can not come early in the morning. His asked for a late morning appointment. Earliest available is 10/12/19 at 11:00am. agreed with time and date. Mailed appointment reminder to patient's address on file, per 's request. OND MILL OPERATOR Telephone Encounter - Kelly Sigala RN - 08/10/2020 4:57 PM CSTNoted. Will need to make a follow up appointment. elephone Encounter - Ivette Lane - 08/09/2020 12:29 PM CSTMarcus Vincent Erickson is a 40 year old male is calling states he was admitted at [facility] on07/28/20 for seizures and would like to discuss medications. Please call patient [phone]. Thank you. documented in this encounter Plan of Treatment Date Type Specialty Care Team Description 10/12/2020 Office Visit Infectious Disease Anu Izquierdo MD [address] [place], [place] [address] [phone] Health Maintenance Due Date Last Done Comments [...] Phone Address Typ e / Group Dates [facility] MEDICAID OF [id number] 2018-Pres [phone] ca[address] [place] ent [phone] [place] [address] HUMANA - HUMANA [id number] 2019-Pres Medica re Adv MANAGED MEDICARE ent FFS MEDICARE documented as of this encounter Advance Directives Type Date Recorded Patient Low Heel Builder Explanati on Advance Directives and Living Will Power of Physical Chemist
--- OUTSIDE RECORDS SUMMARY | 2020-09-22 10:54 | XMS REPORT | Summary of Care ---
:1980 Author Organization [facility] Address [address] [place] [address] Care Team Providers Name Role Phone Manuel Izquierdo MD Primary Care Provider Reason for Visit Reason Comments Referral/consult Encounter Details Date Type Department Care Team Description 08/08/2020 Telephone [facility] Infectious Iker Izquierdo MD Referral/consult Diseases- [place] [address] [address] [place] [address] Allergies Active Allergy Reactions Severity Noted Date Comments Aspirin 10/20/2005 Mupirocin Rash 06/09/2014 Propoxyphene N-Acetaminophen 10/20/2005 Gabapentin Hives 05/02/2019 Sulfa (Sulfonamide Antibiotics) Rash 4 Reaction to Bactrim DS Tramadol Hives 06/09/2014 documented as of this encounter (statuses as of 08/24/2020) Medications Medication Sig Dispensed Refills Start Date End Date Status HYDROcodone-acetami Take 1 tablet by 90 tablet 0 09/02/2019 Active nophen (NORCO) mouth every 6 (six) 10-325 mg hours as needed for tabletIndications: Pain (scale 4-6). Bronchitis NARCAN 4 ADMINISTER A SINGLE 0 11/04/2019 Active mg/actuation [place] SPRAY INTRANASALLY INTO ONE NOSTRIL. CALL 911. [...] as of this encounter (statuses as of 08/24/2020) Active Problems Problem Noted Date S/P IVC filter 03/27/2017 Hip pain, chronic, left 06/12/2014 Human immunodeficiency virus (HIV) disease 08/04/2012 Hepatitis B virus infection 08/04/2012 documented as of this encounter (statuses as of 08/24/2020) Resolved Problems Problem Noted Date Resolved Date Rash 11/25/2013 03/05/2016 Oral candidiasis 08/11/2012 03/05/2016 MRSA infection 08/04/2012 03/05/2016 Hepatitis B, chronic 08/04/2012 08/04/2012 documented as of this encounter (statuses as of 08/24/2020) Immunizations Name Administration Dates Next Due Influenza [...] with No / Unsure 07/12/2020 9:40 PM SECTION HAND someone who was confirmed or suspected to have Coronavirus / COVID-19? documented as of this encounter Last Filed Vital Signs Not on filedocumented in this encounter Miscellaneous Notes Telephone Encounter - Kelly Sigala RN - 08/10/2020 4:56 PM CST July 26, 2020 2:02 PM Note Printed referral and faxed as requested. DP ,Please Fax referral to FAX [phone] Ambar Seth And please backdated from April PROGRESS NOTES FROM April 26 2020 WILL BE FAXED TO US TODAY GAVE THEM OUR FAX [phone] TO AMBAR COLLINS . elephone Encounter - Priti Longo - 08/08/2020 1:47 PM CSTMarjacey Erickson is a 40 year old male Blanquita from [facility] is calling requesting a referral for pain management. DX CODE:[id number] Provider: Sunni Alegria . Please contact at [phone] fax#[phone] Thank you ION HAND documented in this encounter Plan of Treatment [...] Phone Address Typ e / Group Dates [facility] MEDICAID OF [id number] 2018-Pres [phone]i ca[address] [place] ent [phone] [place] [address] HUMANA - HUMANA [id number] 2019-Pres Medica re Adv MANAGED MEDICARE ent FFS MEDICARE documented as of this encounter Advance Directives Type Date Recorded Patient Bag Builder Explanati on Advance Directives and Living Will Power of Printing And Stamping Supervisor
--- OUTSIDE RECORDS SUMMARY | 2020-09-22 10:54 | XMS REPORT | Summary of Care ---
:1980 Author Organization [facility] Address [address] [place] [address] Care Team Providers Name Role Phone Manuel Izquierdo MD Primary Care Provider Reason for Referral (Routine) Status Reason Specialty Diagnoses / Referred By Referred To Procedures Contact Contact Open Patient Pain Medicine Diagnoses Chronic joint pain Chronic back pain, unspecified back location, unspecified back pain laterality [place], [place], Requested Procedures CONSULT/REFERRAL PAIN CLINIC [address] Provider [id number] [place] [address] Reason for Visit Reason Comments Referral/consult Encounter Details Date Type Department Care Team Description 09/05/[address] [facility] Infectious Iker Izquierdo MD Referral/consult Diseases- [address] [place], [place] [address] [address] [place] [address] Allergies Active Allergy Reactions Severity Noted Date Comments Aspirin 10/20/2005 Mupirocin Rash 06/09/2014 Propoxyphene N-Acetaminophen 10/20/2005 Gabapentin Hives 05/02/2019 Sulfa (Sulfonamide Antibiotics) Rash 4 Reaction to Bactrim DS Tramadol Hives 06/09/2014 documented as of this encounter (statuses as of 09/16/2020) Medications Medication Sig Dispensed Refills Start Date End Date Status HYDROcodone-acetami Take 1 tablet by 90 tablet 0 09/02/2019 Active nophen (NORCO) mouth every 6 (six) 10-325 mg hours as needed for tabletIndications: Pain (scale 4-6). Bronchitis NARCAN 4 ADMINISTER A SINGLE 0 11/04/2019 Active mg/actuation [place] SPRAY INTRANASALLY INTO ONE NOSTRIL. CALL 911. [...] as of this encounter (statuses as of 09/16/2020) Active Problems Problem Noted Date S/P IVC filter 03/27/2017 Hip pain, chronic, left 06/12/2014 Human immunodeficiency virus (HIV) disease 08/04/2012 Hepatitis B virus infection 08/04/2012 documented as of this encounter (statuses as of 09/16/2020) Resolved Problems Problem Noted Date Resolved Date Rash 11/25/2013 03/05/2016 Oral candidiasis 08/11/2012 03/05/2016 MRSA infection 08/04/2012 03/05/2016 Hepatitis B, chronic 08/04/2012 08/04/2012 documented as of this encounter (statuses as of 09/16/2020) Immunizations Name Administration Dates Next Due Influenza [...] Assigned at Date Recorded Not on file documented as of this encounter Last Filed Vital Signs Not on filedocumented in this encounter Miscellaneous Notes Telephone Encounter - Lesli Peterson RN - 09/16/2020 2:32 PM CSTFaxed pain management referral to [facility] at [phone] with confirmation received. elephone Encounter - Rex Escamilla PA - 09/16/2020 11:10 AM CSTYes, please send referral . he is followed by Dr. Izquierdo but I saw him on 04/05/20 He c/o chronic joint and back pain You can fax those pain clinics record to the new pain clinic as well elephone Encounter - Lesli Peterson RN - 09/16/2020 10:37 AM CSTJeff, Please see the medical records from 08/01/20 from his pain doctor (under external provided) Is it okay to provide patient with new pain referral? Thank you elephone Encounter - Ivette Lane - 09/15/2020 8:19 AM CSTPlease review and close encounter. Thank you. elephone Encounter - Ivette Lane - 09/06/2020 12:52 PM CSTSaleem Erickson is a 40 year old male Pain mgmt at [facility] is calling for referral Please fax to [phone] signed by Ivette Lane at 09/06/2020 12:58 PM CSTTelephone Encounter - Ivette Lane - 09/05/2020 4:08 PM Thomas Erickson is a 40 year old male is requesting a external Pain Mgmt referral to [facility] # [phone] Fax#[phone] Thank you. documented in this encounter Plan of Treatment Date Type Specialty Care Team Description 10/12/2020 Office Visit Infectious Disease Anu Izquierdo MD [address] [place] [address] Health Maintenance Due Date Last Done Comments Depression Screening 1991 PNEUMOCOCCAL 0-64 YEARS COMBINED 11/24/2017 09/15/2014, 08/2012 SERIES (3 of 3 - PPSV23) INFLUENZA VACCINE (#1) 2020 09/02/2019, 09/15/2014, 07/22/2013, Additional history exists DTaP,Tdap,and Td Vaccines (2 - Td) 09/08/2022 09/08/2012 documented as of this encounter Results Not on filedocumented in this encounter Visit Diagnoses Diagnosis Chronic joint pain - Primary Pain in joint, site unspecified Chronic back pain, unspecified back loca tion, unspecified back pain laterality documented in this encounter Insurance Payer Benefit Plan Subscriber ID Effective Phone Address Typ e / Group Dates [facility] MEDICAID OF [id number] 2018-Pres [phone]i ca[address] [place] ent [phone] [place] [address] HUMANA - HUMANA [id number] 2019-Pres Medica re Adv MANAGED MEDICARE ent FFS MEDICARE documented as of this encounter Advance Directives Type Date Recorded Patient Automatic Lathe Tender Explanati on Advance Directives and Living Will Power of Professor Of Vegetable Science
--- OUTSIDE RECORDS SUMMARY | 2020-09-22 10:54 | XMS REPORT | Summary of Care ---
:1980 Author Organization [facility] Address [address] [place] [address] Care Team Providers Name Role Phone Manuel Izquierdo MD Primary Care Provider Reason for Visit Reason Comments Talk To Provider Speak with DR Hayes Encounter Details Date Type Department Care Team Description 07/26/2020 Telephone [facility] Infectious Yury Izquierdo, Talk To Provider (Speak Diseases- Danish KENNEDY with DR Hayes) [address], [place], [place] [address] [address] [place], [place] [phone] [address] [phone] Allergies Active Allergy Reactions Severity Noted Date Comments Aspirin 10/20/2005 Mupirocin Rash 06/09/2014 Propoxyphene N-Acetaminophen 10/20/2005 Gabapentin Hives 05/02/2019 Sulfa (Sulfonamide Antibiotics) Rash 4 Reaction to Bactrim DS Tramadol Hives 06/09/2014 documented as of this encounter (statuses as of 08/05/2020) Medications Medication Sig Dispensed Refills Start Date End Date Status HYDROcodone-acetami Take 1 tablet by 90 tablet 0 09/02/2019 Active nophen (NORCO) mouth every 6 (six) 10-325 mg hours as needed for tabletIndications: Pain (scale 4-6). Bronchitis NARCAN 4 ADMINISTER A SINGLE 0 11/04/2019 Active mg/actuation [place] SPRAY INTRANASALLY INTO ONE NOSTRIL. CALL 911. [...] as of this encounter (statuses as of 08/05/2020) Active Problems Problem Noted Date S/P IVC filter 03/27/2017 Hip pain, chronic, left 06/12/2014 Human immunodeficiency virus (HIV) disease 08/04/2012 Hepatitis B virus infection 08/04/2012 documented as of this encounter (statuses as of 08/05/2020) Resolved Problems Problem Noted Date Resolved Date Rash 11/25/2013 03/05/2016 Oral candidiasis 08/11/2012 03/05/2016 MRSA infection 08/04/2012 03/05/2016 Hepatitis B, chronic 08/04/2012 08/04/2012 documented as of this encounter (statuses as of 08/05/2020) Immunizations Name Administration Dates Next Due Influenza [...] with No / Unsure 07/12/2020 9:40 PM POULTRY HANGER someone who was confirmed or suspected to have Coronavirus / COVID-19? documented as of this encounter Last Filed Vital Signs Not on filedocumented in this encounter Miscellaneous Notes Telephone Encounter - Geraldine Samano - 08/02/2020 8:41 AM CSTEncounter has approached the 72hr deadline, please review and close! Thank you elephone Encounter - Geraldine Samano - 07/26/2020 2:59 PM CSTMarjacey Erickson is a [address] Hayes is calling to discuss this patient with you he is currently on target to go home katie ricoin the morning from the hospital. Dr Hayes would just like to discuss the case with you. Please call on Cell at [phone] Thank you documented in this encounter Plan [...] Typ e / Group Dates [facility] MEDICAID OF [id number] 2018-Pres [phone] Medi caid [place] ent [phone] [id number] [place] [address] HUMANA - HUMANA [id number] 2019-Pres Medica re Adv MANAGED MEDICARE ent FFS MEDICARE documented as of this encounter Advance Directives Type Date Recorded Patient Electronic Engineering Draftsperson Explanati on Advance Directives and Living Will Power of Investigation Lieutenant
--- OUTSIDE RECORDS SUMMARY | 2020-09-22 10:54 | XMS REPORT | Summary of Care ---
:1980 Author Organization [facility] Address [address] [place] [address] Care Team Providers Name Role Phone Manuel Izquierdo MD Primary Care Provider Reason for Visit Reason Comments Rx Concern/Question Encounter Details Date Type Department Care Team Description 08/09/2020 Telephone [facility] Infectious Iker Izquierdo MD Rx Concern/Question Diseases- [place] [address] [place] [address], [address] [place] [address] [place] [address] Allergies Active Allergy Reactions [...] ADMINISTER A SINGLE 0 11/04/2019 Active mg/actuation [place] SPRAY INTRANASALLY INTO ONE NOSTRIL. CALL 911. [...] with No / Unsure 07/12/2020 9:40 PM CHIEF CLERK someone who was confirmed or suspected to [...] is calling states he was admitted at [facility] on07/28/20 for seizures and would like to discuss medications. Please call patient [phone]. Thank you. documented in this encounter Plan [...] Phone Address Typ e / Group Dates [facility] MEDICAID OF [id number] 2018-Pres [phone]i ca[address] [place] ent [phone] [place] [address] HUMANA - HUMANA [id number] 2019-Pres Medica re Adv MANAGED MEDICARE ent FFS MEDICARE documented as of this encounter Advance Directives Type Date Recorded Patient Well Logging Captain Mud Analysis Explanati on Advance Directives and Living Will Power of Automatic Pinsetter Mechanic
--- NOTE | 2020-09-22 11:09 | EDPHYS ---
Physician Documentation [facility] Name: Saleem Erickson Age: 40 yrs Sex: Male : 1980 Arrival Date: 09/22/2020 Time: 10:50 Bed DIS4 Private MD: ED Physician Jay Jay Woodard HPI: 09/22 11:09 This 40 yrs old Male presents to ER via Unassigned with complaints of kdr collapsing. 11:09 Preceding the arrest, the patient collapsed. The arrest occurred in a parking lot. kdr Pre-hospital course: The arrest was witnessed EMS care prior to arrival: initiation of ACLS, peripheral IV, IO. intubation with a LMA, oxygen, LMA. backboard, EMS on scene time was 20 minutes were spent at scene. Time elapsed prior to ACLS is unknown. ACLS has been in progress for 40 minutes. It is unknown whether or not the patient has had similar symptoms in the past. It is unknown whether or not the patient has recently seen a physician. Historical: - Allergies: 10:40 Amoxicillin; aa5 10:40 Fluconazole; aa5 10:40 Tizanidine; aa5 10:40 VENLAFAXINE; aa5 - PMHx: 10:40 Anxiety; HIV; aa5 ROS: 11:09 Constitutional: Unobtainable as the patient is unresponsive kdr 11:09 Unable to obtain ROS due to obtunded state, patient is on ventilator. Exam: 11:09 Constitutional: This is a well developed, well nourished patient who is awake, alert, kdr and in no acute distress. Head/Face: Normocephalic, atraumatic. Eyes: Pupils equal round and reactive to light, extra-ocular motions intact. Lids and lashes normal. Conjunctiva and sclera are non-icteric and not injected. Cornea within normal limits. Periorbital areas with no swelling, redness, or edema. Neck: Trachea midline, no thyromegaly or masses palpated, and no cervical lymphadenopathy. Supple, full range of motion without nuchal rigidity, or vertebral point tenderness. No Meningismus. Chest/axilla: Normal chest wall appearance and motion. No deformity. No lesions are appreciated. Male : Normal genitalia with no discharge or lesions. 11:09 Cardiovascular: The patient appears to be in v-fib refractory to treatment. 11:09 Respiratory: Agonal breathing only at time of intubation with an ET tube replacing the LMA, Respirations: Shallow agonal breathing. Procedures: 11:09 Intubation: Intubated orally using # 3 Eyad blade with 7.5 mm ETT. was successful kdr on first attempt. Ventilated with Ambu bag. Tube secured with ETT hernandez at center of mouth measured 22 cm at lip. Placement verified by CO2 detector with (+) color change, auscultating bilateral breath sounds. MDM: 11:09 Patient medically screened. kdr 11:09 Data reviewed: vital signs, nurses notes, lab test result(s), radiologic studies. kdr Counseling: I had a detailed discussion with the patient and/or guardian regarding: the historical points, exam findings, and any diagnostic results supporting the discharge/admit diagnosis, lab results. 09/22 11:05 Order name: Glucose, Ancillary Testing EDMS 09/22 12:51 Order name: ABG Arterial Blood Gas EDMS Administered Medications: 10:42 Drug: EPINEPHrine 0.1mg/mL 1:10,000 1 mg Route: IVP; Site: left antecubital; aa5 10:45 Drug: EPINEPHrine 0.1mg/mL 1:10,000 1 mg Route: IVP; Site: left antecubital; aa5 10:45 Drug: Sodium Bicarbonate 1 amp Route: IVP; Site: left antecubital; aa5 10:46 Drug: Sodium Bicarbonate 1 amp Route: IVP; Site: left antecubital; aa5 10:48 Drug: EPINEPHrine 0.1mg/mL 1:10,000 1 mg Route: IVP; Site: left antecubital; aa5 10:49 Drug: amiodarone 300 mg Route: IVP; Site: left antecubital; aa5 10:51 Drug: EPINEPHrine 0.1mg/mL 1:10,000 1 mg Route: IVP; Site: left antecubital; aa5 10:54 Drug: EPINEPHrine 0.1mg/mL 1:10,000 1 mg Route: IVP; Site: left antecubital; aa5 10:55 Drug: amiodarone 150 mg Route: IVP; Site: left antecubital; aa5 10:57 Drug: EPINEPHrine 0.1mg/mL 1:10,000 1 mg Route: IVP; Site: left antecubital; aa5 10:57 Drug: EPINEPHrine 0.1mg/mL 1:10,000 1 mg Route: IVP; Site: left antecubital; aa5 11:00 Drug: EPINEPHrine 0.1mg/mL 1:10,000 1 mg Route: IVP; Site: left antecubital; aa5 Point of Care Testing: Blood Glucose: 10:49 Blood Glucose: 138 mg/dL; aa5 Ranges: Critical Glucose Levels:Adult <50 mg/dl or >400 mg/dl <40 mg/dl or >180 mg/dl Disposition: 11:08 . kdr Disposition: Patient pronounced on 09/22/20 11:05 by Jay Jay Woodard. Impression: Cardiopulmonary arrest. - Released to Electronic Warfare Technical. Signatures: Dispatcher [employer] EDMS Jay Jay Woodard MD MD kdr Elisha Pulliam RN RN aa5 Corrections: (The following items were deleted from the chart) 15:51 11:09 09/22/2020 11:09 Patient pronounced on 09/22/2020 at 11:05 by Jay Jay Woodard. aa5 Impression: Cardiopulmonary arrest. Released to Electronic Warfare Technical. kdr
[2020-09-22 12:50] LABS: Arterial Blood Carboxyhemoglob 2.5 % (0-1.5); Blood Gas Oxyhemoglobin 85.7 % (94-97); Blood O2 Saturation 88.5 % (92-98.5)
--- NOTE | 2020-09-22 15:53 | ER ---
Nurse's Notes [facility] Name: Saleem Ericskon Age: 40 yrs Sex: Male : 1980 Arrival Date: 09/22/2020 Time: 10:50 Bed DIS4 Private MD: Diagnosis: Cardiopulmonary arrest Presentation: 09/22 10:39 Compressions began prior to arrival. aa5 10:39 Method Of Arrival: EMS: [facility] aa5 10:39 Chief complaint: EMS states: Pt was seen walking down the road when he collapsed. Upon aa5 scene arrival pt was noted to have no pulse and CPR was started. EMS reports giving 3 epis, 1/2 amp of Sodium Bicarb, and reports shocking pt 6 times due to V-fib on monitor. Last epi was given just RN NURSERY. IO to L leg. 10:39 Acuity: MARTA 1 aa5 Historical: - Allergies: 10:40 Amoxicillin; aa5 10:40 Fluconazole; aa5 10:40 Tizanidine; aa5 10:40 VENLAFAXINE; aa5 - PMHx: 10:40 Anxiety; HIV; aa5 Assessment: 10:39 CPR assessment: CPR assessment: cyanotic, pulses present w/ compressions. aa5 10:39 General: Appears distressed, Behavior is unresponsive. Neuro: Level of Consciousness is jd3 unresponsive. Cardiovascular: Rhythm is ventricular fibrillation. Respiratory: Airway via oral intubation. Derm: Skin is intact, Skin is diaphoretic, Skin is dusky, pale, Skin temperature is cool. 10:43 CPR assessment: Pulse check with no palpable central pulse, V-fib on monitor, aa5 defibrillation at 200 joules, CPR continued after defibrillation. 10:46 CPR assessment: Pulse check with no palpable central pulse, V-fib on monitor, aa5 defibrillation at 200 joules, CPR continued after defibrillation. 10:48 CPR assessment: Pulse check with no palpable central pulse, V-fib on monitor, aa5 defibrillation at 200 joules, CPR continued after defibrillation. 10:50 CPR assessment: Pulse check with no palpable central pulse, V-fib on monitor, aa5 defibrillation at 200 joules, CPR continued after defibrillation. 10:53 CPR assessment: Pulse check with no palpable central pulse, V-fib on monitor, aa5 defibrillation at 200 joules, CPR continued after defibrillation. 10:55 CPR assessment: Pulse check with no palpable central pulse, V-fib on monitor, aa5 defibrillation at 200 joules, CPR continued after defibrillation. 10:59 CPR assessment: Pulse check with no palpable central pulse, PEA on monitor. CPR aa5 continued. 11:04 CPR assessment: Dr. Woodard using US, no cardiac activity noted by Dr. Woodard. No aa5 palpable pulses noted, asystole on monitor. 12:00 Reassessment: Pt's significant other, Mariya Espinoza, notified of by Dr. Woodard. aa5 Next of kin listed on the pt's demographics is Mariya Espinoza. Mariya Espinoza states they are not legally . Unable to locate other family. . 13:49 Reassessment: silver colored ring left on patient's hand. jd3 13:50 Reassessment: PD at bedside . aa5 14:00 Reassessment: PD speaking with pt's significant other Mariya Espinoza. . aa5 14:48 Reassessment: Director Of Recreation Therapy at bedside, Director Of Recreation Therapy reports Autopsy was ordered by aa5 [employer] and transport has been contacted by them. . 14:48 Reassessment: Pt with clothes in place (clothes were cut for CPR by EMS), wallet with aa5 no dollar bills noted just a couple of coins/dray driver's license/credit cards, and shoes at bedside, Lorazepam bottle and hydrocodone bottle at bedside. Witnessed by Angel Boothe RN. . 15:50 Reassessment: 2 pills in hydrocodone bottle and 4 pills in Lorazepam bottle reported by aa5 Director Of Recreation Therapy. . 15:51 Reassessment: Pt's belongings sent with patient to [place].. aa5 15:52 Reassessment: Director Of Recreation Therapy speaking to pt's significant other (Mariya Espinoza).. aa5 ED Course: 10:42 Assisted provider with intubation using 7.5 mm ETT via oral route. ET tube secured at aa5 23cm at the lips. Intubated by Jay Jay Woodard MD Placement verified by CO2 detector w/ + color change, auscultating bilateral breath sounds. 10:42 Inserted saline lock: 18 gauge in left antecubital area, using aseptic technique. aa5 10:50 Patient arrived in ED. as 11:08 Jay Jay Woodard MD is Attending Physician. kdr 11:08 Jay Jay Woodard MD is Pronouncing Provider. kdr 11:17 Angel Boothe RN is Primary Nurse. jd3 12:48 Triage completed. aa5 Administered Medications: 10:42 Drug: EPINEPHrine 0.1mg/mL 1:10,000 1 mg Route: IVP; Site: left antecubital; aa5 10:45 Drug: EPINEPHrine 0.1mg/mL 1:10,000 1 mg Route: IVP; Site: left antecubital; aa5 10:45 Drug: Sodium Bicarbonate 1 amp Route: IVP; Site: left antecubital; aa5 10:46 Drug: Sodium Bicarbonate 1 amp Route: IVP; Site: left antecubital; aa5 10:48 Drug: EPINEPHrine 0.1mg/mL 1:10,000 1 mg Route: IVP; Site: left antecubital; aa5 10:49 Drug: amiodarone 300 mg Route: IVP; Site: left antecubital; aa5 10:51 Drug: EPINEPHrine 0.1mg/mL 1:10,000 1 mg Route: IVP; Site: left antecubital; aa5 10:54 Drug: EPINEPHrine 0.1mg/mL 1:10,000 1 mg Route: IVP; Site: left antecubital; aa5 10:55 Drug: amiodarone 150 mg Route: IVP; Site: left antecubital; aa5 10:57 Drug: EPINEPHrine 0.1mg/mL 1:10,000 1 mg Route: IVP; Site: left antecubital; aa5 10:57 Drug: EPINEPHrine 0.1mg/mL 1:10,000 1 mg Route: IVP; Site: left antecubital; aa5 11:00 Drug: EPINEPHrine 0.1mg/mL 1:10,000 1 mg Route: IVP; Site: left antecubital; aa5 Point of Care Testing: Blood Glucose: 10:49 Blood Glucose: 138 mg/dL; aa5 Ranges: Outcome: 11:05 Patient : Time of 11:05 Pronounced by Jay Jay Woodard MD aa5 15:50 Patient : Body released to [place] aa5 15:51 Patient left the ED. aa5 Signatures: Jay Jay Woodard MD MD kdr Callie Longo Elisha, RN RN aa5 Angel Boothe RN RN jd3 Corrections: (The following items were deleted from the chart) 12:49 10:39 Chief complaint: EMS states: Pt was seen walking down the road when he collapsed. aa5 Upon scene arrival pt was noted to have no pulse and CPR was started. aa5 13:32 10:39 Chief complaint: EMS states: Pt was seen walking down the road when he collapsed. aa5 Upon scene arrival pt was noted to have no pulse and CPR was started. EMS reports giving 3 epis, 1/2 amp of Sodium Bicarb, and reports shocking pt 6 times due to V-fib on monitor. Last epi was given just RN NURSERY. aa5 18:47 14:48 Reassessment: Pt with clothes in place (clothes were cut for CPR by EMS), wallet aa5 with no dollar bills noted just a couple of coins, and shoes at bedside, Lorazepam bottle and hydrocodone bottle at bedside. Witnessed by Angel Boothe RN. . aa5
== END 2020-09-22 15:51 ==
LOC: ER 10:49
DX: I46.9 Cardiac arrest, cause unspecified (principal); F41.9 Anxiety disorder, unspecified; I49.01 Ventricular fibrillation
CPT/HCPCS: 31500; 82805; 82947; 92950; 96374; 96375; 99285; J0171; J0282; J7030